=== PATIENT | female | born 1950 | race Caucasian/White ===

== ENCOUNTER 2021-03-03 13:46 | Emergency (ER) | payer SELFPAY ==
[~2021-03-03] VITALS: Ht 162.6 cm; Wt 64.9 kg
--- NOTE | 2021-03-03 13:54 | NUR ---
LOW ABDOMINAL PAIN X 1 MONTH. BREATHING IS EVEN AND UNLABORED. AWAITING MD BAILON IN BED 4
[2021-03-03 14:36] LABS: BASOPHILS % (AUTO) 0.5 % (0.0-2.0); EOSINOPHILS % (AUTO) 0.9 % (0.0-6.0); HEMATOCRIT 32 % (33-45); HEMOGLOBIN 11.4 g/dL (11.5-14.8); LYMPHOCYTES # (AUTO) 1.3 K/uL (0.8-4.8); LYMPHOCYTES % (AUTO) 21.4 % (20.0-44.0); MEAN CORPUSCULAR HGB CONC 35 g/dl (31.0-36.0); MEAN CORPUSCULAR VOLUME 94 fL (82-100); MONOCYTES # (AUTO) 0.4 K/uL (0.1-1.30); MONOCYTES % (AUTO) 7.4 % (2.0-12.0); NEUTROPHILS # (AUTO) 4.2 K/uL (1.8-8.9); NEUTROPHILS % (AUTO) 69.8 % (43.0-81.0); PLATELET COUNT (AUTO) 285 K/uL (150-450); RED BLOOD CELL COUNT(AUTO) 3.44 MIL/uL (4.0-5.2)
--- NOTE | 2021-03-03 15:36 | NUR ---
PT TAKEN TO CT
[2021-03-03] MEDS ORDERED: [UNRECOGNIZED DRUG - REMARK] (16:06)
[2021-03-03] MEDS ORDERED: [UNRECOGNIZED DRUG - OTHER] PO (16:06)
--- NOTE | 2021-03-03 16:27 | NUR ---
COVID TEST COLLECTED AND SENT TO LAB
--- NOTE | 2021-03-03 17:49 | NUR ---
PT LEFT AMA AND UNDERSTOOD THE RISKS OF LEAVING.
[2021-03-03 18:02] LABS: BILIRUBIN,TOTAL 0.5 mg/dL (0.2-1.0); CALCIUM, SERUM 9.9 mg/dL (8.5-10.1)
[2021-03-03 18:03] LABS: ALBUMIN 4.2 g/dL (3.4-5.0); BILIRUBIN,DIRECT 0.1 mg/dL (0.0-0.2); TOTAL PROTEIN, SERUM 7.9 g/dL (6.4-8.2)
[2021-03-03 18:04] LABS: POTASSIUM 7.3 mmol/L (3.5-5.1)
[2021-03-03 18:05] LABS: CREATININE 17.8 mg/dL (0.6-1.3)
[2021-03-03 18:50] LABS: BILIRUBIN,URINE NEGATIVE (NEGATIVE); COLOR,URINE YELLOW (YELLOW); LEUKOCYTE ESTERASE ,URINE NEGATIVE (NEGATIVE); NITRITE, URINE NEGATIVE (NEGATIVE); PROTEIN,URINE NEGATIVE (NEGATIVE); UGLUCOSE 100 MG/DL mg/dL (NEGATIVE); UROBILINOGEN,URINE 0.2 EU/dL (0.2)
[2021-03-03 19:09] VITALS: BP 188/89
== END 2021-03-03 19:10 | disposition left against medical advice (07) ==
LOC: ER 13:51
DX: R10.33 Periumbilical pain (principal); E87.5 Hyperkalemia; N17.9 Acute kidney failure, unspecified; Z20.822 Contact with and (suspected) exposure to COVID-19; I10 Essential (primary) hypertension; E11.9 Type 2 diabetes mellitus without complications; Z98.890 Other specified postprocedural states
CPT/HCPCS: 36415; 80048-TC; 80076-TC; 83690-TC; 85025-TC; C9803

== ENCOUNTER 2021-03-06 14:54 | Inpatient (IN) | payer MEDICAID ==
[~2021-03-06] VITALS: Ht 160 cm; Wt 68.0 kg
[2021-03-06] VITALS: BP 171/101
[~2021-03-06 14:54] MED LIST: [UNRECOGNIZED DRUG - OTHER] PO; [UNRECOGNIZED DRUG - REMARK]
--- NOTE | 2021-03-06 14:54 | NUR ---
PT BIB DAUGHTER C/O GENERALIZED WEAKNESS, HIGH B/P. NAUSEA NOT TOLERATING FODD. PT IS AAOX4, NOT IN RESPIRATORY DISTRESS, HOOKED TO CHEMISTRY ASSOCIATE, KEPT RESTED AND COMFORTABLE. WILL CONTINUE TO MONITOR.
--- NOTE | 2021-03-06 15:08 | NUR ---
SEEN AND EXMAINED BY .
[2021-03-06] MEDS ORDERED: IV NS 0.9% 1,000 ML BAG IV ONE (15:30)
[2021-03-06] MEDS ORDERED: ONDANSETRON HCL/PF 4 MG/2 ML VIAL IVP ONE (15:30)
--- NOTE | 2021-03-06 15:30 | NUR ---
IV LINE ESTABLISHED BLOOD DRAWN AND SENT TO LAB.
[2021-03-06] MEDS ORDERED: ONDANSETRON HCL/PF 4 MG/2 ML VIAL ONE (15:36)
[2021-03-06] MEDS ORDERED: LISI1TAB55 PO (15:45)
[2021-03-06] MEDS ORDERED: LETROZOLE PO (15:45)
[2021-03-06 15:54] LABS: BASOPHILS % (AUTO) 0.5 % (0.0-2.0); EOSINOPHILS % (AUTO) 0.9 % (0.0-6.0); HEMATOCRIT 32 % (33-45); LYMPHOCYTES # (AUTO) 0.9 K/uL (0.8-4.8); LYMPHOCYTES % (AUTO) 16.5 % (20.0-44.0); MEAN CORPUSCULAR HGB CONC 35 g/dl (31.0-36.0); MEAN CORPUSCULAR VOLUME 93 fL (82-100); MONOCYTES # (AUTO) 0.4 K/uL (0.1-1.30); MONOCYTES % (AUTO) 6.9 % (2.0-12.0); NEUTROPHILS # (AUTO) 4.2 K/uL (1.8-8.9); NEUTROPHILS % (AUTO) 75.2 % (43.0-81.0); PLATELET COUNT (AUTO) 262 K/uL (150-450); RED BLOOD CELL COUNT(AUTO) 3.39 MIL/uL (4.0-5.2); WHITE BLOOD COUNT (AUTO) 5.6 K/uL (4.3-11.0)
[2021-03-06 15:58] LABS: BILIRUBIN,URINE NEGATIVE (NEGATIVE); COLOR,URINE YELLOW (YELLOW); LEUKOCYTE ESTERASE ,URINE NEGATIVE (NEGATIVE); NITRITE, URINE NEGATIVE (NEGATIVE); PROTEIN,URINE NEGATIVE (NEGATIVE); UGLUCOSE 250 MG/DL mg/dL (NEGATIVE); UROBILINOGEN,URINE 0.2 EU/dL (0.2)
[2021-03-06 16:06] LABS: CALCIUM, SERUM 9.2 mg/dL (8.5-10.1); CARBON DIOXIDE 17 mmol/L (21-32); CHLORIDE 95 mmol/L (98-107); GLUCOSE 185 mg/dL (74-106); SODIUM SERUM 130 mmol/L (136-145)
[2021-03-06 16:11] LABS: CREATININE 19.6 mg/dL (0.6-1.3); POTASSIUM 6.5 mmol/L (3.5-5.1); UREA NITROGEN, BLOOD 128 mg/dL (7-18)
--- NOTE | 2021-03-06 16:13 | NUR ---
DR PINTO AT BEDSIDE
--- NOTE | 2021-03-06 16:15 | NUR ---
CALLED NURSING SUP FOR BED, NO ANSWER. WILL CALL BACK IN 10 MINUTES.
[2021-03-06 16:17] LABS: BILIRUBIN,DIRECT 0.2 mg/dL (0.0-0.2); BILIRUBIN,TOTAL 0.4 mg/dL (0.2-1.0)
[2021-03-06 16:18] LABS: ALANINE AMINOTRANSFERASE 15 U/L (12-78); ALBUMIN 4.3 g/dL (3.4-5.0); ALKALINE PHOSPHATASE 61 U/L (46-116); ASPARTATE AMINOTRANSFERASE 13 U/L (15-37); LIPASE 233 U/L (73-393); TOTAL PROTEIN, SERUM 7.9 g/dL (6.4-8.2)
--- NOTE | 2021-03-06 16:23 | NUR ---
CALLED NURSING SUP FOR TELE BED.
[2021-03-06] MEDS ORDERED: CALCIUM CHLORIDE 1,000 MG/10 ML DISP.SYRIN ONE (16:27)
[2021-03-06] MEDS ORDERED: SODIUM BICARBONATE SYR 50 MEQ/50 ML DISP.SYRIN ONE ×2 (16:27→16:58)
[2021-03-06] MEDS ORDERED: CALCIUM CHLORIDE 1,000 MG/10 ML DISP.SYRIN IV ONE (16:30)
[2021-03-06] MEDS ORDERED: SODIUM BICARBONATE SYR 50 MEQ/50 ML DISP.SYRIN IV ONE ×2 (16:30)
[2021-03-06] MEDS ORDERED: DEXTROSE 50%-WATER 50 ML DISP.SYRIN IV PRN (16:30)
[2021-03-06] MEDS: HEPARIN SODIUM, PORCINE 5000 UNITS/1 ML VIAL SQ SCH ×2 (16:30→22:57)
[2021-03-06] MEDS ORDERED: ALBUTEROL FS 2.5 MG/3 ML VIAL.NEB NEB ONE (16:30)
[2021-03-06] MEDS ORDERED: MORPHINE SULFATE INJ 2 MG/ML DISP.SYRIN IV PRN (16:30)
[2021-03-06] MEDS ORDERED: ACETAMINOPHEN 325 MG TABLET PO PRN (16:30)
[2021-03-06] MEDS ORDERED: ALBUTEROL FS 2.5 MG/3 ML VIAL.NEB ONE (16:46)
--- NOTE | 2021-03-06 16:46 | NUR ---
PER DR BALLARD NEXT TROPONIN CHECK TO BE DONE AT 2230. LAB MADE AWARE.
--- NOTE | 2021-03-06 16:53 | NUR ---
PER DR BALLARD TO GIVE SECOND DOSE OF SODIUM BICARB.
--- NOTE | 2021-03-06 17:04 | NUR ---
US TECH AT THE BEDSIDE
[2021-03-06 17:17] LABS: CREATININE, URINE 41.2 MG/DL (30.0-125.0); URINE SODIUM, RANDOM 59 mmol/l (40-220)
[2021-03-06] MEDS: BLOOD SUGAR DIAGNOSTIC 1 EACH STRIP VI SCH ×2 (17:40→22:58)
--- NOTE | 2021-03-06 17:40 | NUR ---
BLOOD SUGAR READING IS 103. NO COVERAGE GIVEN PER SLIDING SCALE ORDER.
--- NOTE | 2021-03-06 17:41 | NUR ---
HEPARIN HELP PER DR BALLARD.
--- NOTE | 2021-03-06 18:31 | NUR ---
NOTIFIED LEO IN ER THAT US GUIDED THORACENTESIS WILL BE DONE TOMORROW PER JEOPARDY IR DR. OLIVARES @ [id number]
[2021-03-06] MEDS ORDERED: LABETALOL HCL IV 100MG VIAL ONE (19:18)
[2021-03-06] MEDS: LABETALOL 20 MG/4 ML VIAL IV PRN ×2 (19:22→23:45)
--- NOTE | 2021-03-06 19:23 | NUR ---
REPORT GIVEN TO NURSE TA FOR PATRICIA
--- NOTE | 2021-03-06 19:44 | NUR ---
PT AWAKE AND ALERT ON NETWORK INTERN AND PULSE OX. CALL LIGHT WITHIN REACH AND ALL NEEDS MET.
--- NOTE | 2021-03-06 20:02 | NUR ---
REPORT GIVEN TO CHRISTIAN
--- NOTE | 2021-03-06 20:18 | NUR ---
PT TRANSPORTED TO ROOM 324-2 ON CARDFIAC MONITOR PER ACLS PROTOCOL. V/S STABLE AT TIME OF TRANSFER. ALL BELONGINGS AND PT CHART TRANSFERRED TO .
--- NOTE | 2021-03-06 20:30 | NUR ---
CONCRETE SPREADER NOTES PATIENT ARRIVED ON UNIT VIA GURNEY BY ER NURSE. PATIENT LAYING AWAKE IN BED. A/O X4. PATIENT WITH REGULAR AND UNLABORED BREATHING, ON ROOM AIR TOLERATED WELL. NO SIGNS AND SYMPTOMS OF DISCOMFORT AT THIS TIME. NO COMPLAINS OF PAIN OR DISCOMFORT AT THIS TIME. IV ACCESS L HAND G #20 SL. IV ACCESS PATENT AND INTACT. SAFETY PRECAUTIONS ENFORCED WITH BED LOCKED AND AT LOWEST POSITION. SIDERAILS UP X2. CALL LIGHT WITHIN REACH AT ALL TIMES. WILL CONTINUE TO MONITOR PATIENT.
[2021-03-06 20:46] LABS: ALBUMIN 3.7 g/dL (3.4-5.0); BILIRUBIN,TOTAL 0.4 mg/dL (0.2-1.0); CALCIUM, SERUM 9.4 mg/dL (8.5-10.1); POTASSIUM 6.1 mmol/L (3.5-5.1)
[2021-03-06 20:51] LABS: CREATININE 19.1 mg/dL (0.6-1.3)
--- NOTE | 2021-03-06 23:00 | NUR ---
ANDROID ARCHITECT NOTES GAVE REPORT TO JEANNIE FOR CONTINUITY OF CARE
--- NOTE | 2021-03-06 23:01 | NUR ---
RN NOTE RECEIVED PATIENT IN BED RESTING ALERT ORIENTED X4 ON ROOM AIR ERITREAN SPEAKING,IV SITE IS ON LEFT HAND INTACT PATENT AMBULATORY CONTINET BOWEL/BLADDER,PATIENT ADMITTED WITH HIGH BLOOD PRESSURE ABOUT 191/104 SAFETY MEASURE IMPLEMENT BED IN LOW POSITON AND LOCKED,CALL LIGHT WITHIN REACH, CONTINUE TO MONITOR.
[2021-03-06 23:31] VITALS: BP 183/99
[2021-03-07] VITALS (9 sets, daily range): BP systolic 93–189; BP diastolic 56–97
--- NOTE | 2021-03-07 06:44 | NUR ---
RN NOTE PATIENT REMAINS ON ALERT ORIENTED X4 NO SOB NOT ACUTE DISTRESS NOTED,ON ROOM AIR,BLOOD PRESSURE IS 150/78,ALL DUE MEDS GIVEN MD ORDERED,KEPT CALL LIGHT WITHIN REACH ALL NEEDS MET ENDORSE NEXT COMING SHIFT FOR CONTINUATION OF CARE.
--- NOTE | 2021-03-07 07:21 | NUR ---
SUPERVISOR OF COMMUNICATIONS NOTE RECEIVED PATIENT IN BED RESTING, PATIENT IS ALERT ORIENTED X 4 ON ROOM AIR. PATIENT WITH IV ACCESS ON THE LEFT HAND G, 20, PATENT AND INTACT. PATIENT IS AMBULATORY AND CONTINENT OF BOWEL/BLADDER. SAFETY MEASURE ENFORCED WITH BED IN LOW POSITION AND LOCKED, CALL LIGHT WITHIN REACH, SIDE RAILS RAISED. WILL CONTINUE TO MONITOR.
[2021-03-07 08:02] LABS: BASOPHILS % (AUTO) 0.8 % (0.0-2.0); EOSINOPHILS % (AUTO) 2.6 % (0.0-6.0); HEMATOCRIT 29 % (33-45); LYMPHOCYTES % (AUTO) 21.6 % (20.0-44.0); MEAN CORPUSCULAR HGB CONC 35 g/dl (31.0-36.0); MEAN CORPUSCULAR VOLUME 93 fL (82-100); MONOCYTES # (AUTO) 0.5 K/uL (0.1-1.30); PLATELET COUNT (AUTO) 234 K/uL (150-450); RED BLOOD CELL COUNT(AUTO) 3.07 MIL/uL (4.0-5.2); WHITE BLOOD COUNT (AUTO) 4.7 K/uL (4.3-11.0)
[2021-03-07 08:20] LABS: ALBUMIN 3.6 g/dL (3.4-5.0); BILIRUBIN,TOTAL 0.4 mg/dL (0.2-1.0); CALCIUM, SERUM 9.5 mg/dL (8.5-10.1); MAGNESIUM 3.4 mg/dL (1.8-2.4); TOTAL PROTEIN, SERUM 6.6 g/dL (6.4-8.2)
[2021-03-07 08:29] LABS: CREATININE 19.2 mg/dL (0.6-1.3); PHOSPHORUS 8.6 mg/dL (2.5-4.9); POTASSIUM 6.3 mmol/L (3.5-5.1)
[2021-03-07] MEDS ORDERED: LISINOPRIL (20MG) 20 MG TABLET PO SCH (09:00)
[2021-03-07] MEDS ORDERED: INSULIN REGULAR, HUMAN 100 UNIT/ML 10 ML VIAL IV ONE (09:00)
[2021-03-07] MEDS ORDERED: DEXTROSE 50%-WATER 50 ML DISP.SYRIN IVP ONE (09:00)
[2021-03-07] MEDS ORDERED: SODIUM BICARBONATE SYR 50 MEQ/50 ML DISP.SYRIN IV ONE (09:00)
[2021-03-07] MEDS ORDERED: HYDROCHLOROTHIAZIDE 25 MG TABLET PO SCH (09:00)
--- NOTE | 2021-03-07 09:00 | NUR ---
TEAM SPORTS SALES ASSOCIATE NOTE PATIENT WITH ABNORMAL LAB RESULTS. PATIENT SEEN BY DR. JASSO AND DR. DENSON. WITH ORDERS MADE AND CARRIED OUT. WILL CONTINUE TO MONITOR PATIENT.
[2021-03-07] MEDS: BLOOD SUGAR DIAGNOSTIC 1 EACH STRIP VI SCH ×4 (09:06→22:09)
[2021-03-07] MEDS: LETROZOLE 2.5 MG TABLET PO SCH (09:15)
[2021-03-07] MEDS: HEPARIN SODIUM, PORCINE 5000 UNITS/1 ML VIAL SQ SCH ×2 (09:18→21:00)
[2021-03-07] MEDS ORDERED: SODIUM POLYSTYRENE SULFONATE 15 G/60 ML BOTTLE PO ONE (09:30)
[2021-03-07] MEDS: AMLODIPINE BESYLATE 10 MG TABLET PO SCH (11:15)
[2021-03-07] MEDS: hydrALAZINE HCL 25 MG TABLET PO SCH ×3 (11:16→21:55)
--- NOTE | 2021-03-07 12:26 | NUR ---
PT ON BLOOD THINNER HEPARIN SQ, LAST GIVEN 9 AM 03/07/21. RNITZ WAS INFORMED TO HOLD HEPARIN. CONSENT PENDING. THORACENTESIS CAN BE DONE TOMORROW .
[2021-03-07 13:35] LABS: THYROID STIMULATING HORMONE 1.671 uIU/mL (0.358-3.74)
[2021-03-07 14:27] LABS: ALBUMIN 4.5 g/dL (3.4-5.0); BILIRUBIN,TOTAL 0.5 mg/dL (0.2-1.0); MAGNESIUM 3.5 mg/dL (1.8-2.4); POTASSIUM 5.4 mmol/L (3.5-5.1); TOTAL PROTEIN, SERUM 8.4 g/dL (6.4-8.2)
[2021-03-07 14:48] LABS: CREATININE 18.2 mg/dL (0.6-1.3); PHOSPHORUS 8.2 mg/dL (2.5-4.9)
[2021-03-07] MEDS ORDERED: IV NS 0.9% 1,000 ML IV ONE (15:30)
--- NOTE | 2021-03-07 19:00 | NUR ---
GLASS CURVATURE GAUGER NOTE PATIENT IN BED RESTING, PATIENT IS ALERT ORIENTED X 4 ON ROOM AIR. PATIENT WITH IV ACCESS ON THE LEFT HAND G, 20, PATENT AND INTACT. PATIENT IS AMBULATORY AND CONTINENT OF BOWEL/BLADDER. SAFETY MEASURE ENFORCED WITH BED IN LOW POSITION AND LOCKED, CALL LIGHT WITHIN REACH, SIDE RAILS RAISED. WILL ENDORSE TO NEXT SHIFT FOR CONTINUITY OF CARE
--- NOTE | 2021-03-07 19:28 | NUR ---
COUNTY TAX ASSESSOR NOTE RECEIVED PATIENT IN BED RESTING, PATIENT IS ALERT ORIENTED X 4 ON ROOM AIR. PATIENT WITH IV ACCESS ON THE LEFT HAND G, 20, PATENT AND INTACT. PATIENT IS AMBULATORY AND CONTINENT OF BOWEL/BLADDER. PT DAUGHTER AT BEDSIDE AT THIS TIME.SAFETY MEASURE ENFORCED WITH BED IN LOW POSITION AND LOCKED, CALL LIGHT WITHIN REACH, SIDE RAILS RAISED. WILL CONTINUE TO MONITOR.
[2021-03-07] MEDS: LABETALOL 20 MG/4 ML VIAL IV PRN (20:06)
--- NOTE | 2021-03-07 20:11 | NUR ---
REGISTRATION REP NOTES PRN LABETALOL GIVEN FOR SBP OF 189/95 PT TOLERATED WELL. WILL REASSESS BLOOD PRESSURE. PT HAD MIDLINE INSERTED ALSO LEFT UPPER ARM TOLERATED WELL.
[2021-03-07 20:30] LABS: ALBUMIN 3.5 g/dL (3.4-5.0); BILIRUBIN,TOTAL 0.3 mg/dL (0.2-1.0); CALCIUM, SERUM 8.1 mg/dL (8.5-10.1); POTASSIUM 5.3 mmol/L (3.5-5.1); TOTAL PROTEIN, SERUM 6.5 g/dL (6.4-8.2)
[2021-03-07 20:31] LABS: CREATININE 16.1 mg/dL (0.6-1.3)
--- NOTE | 2021-03-07 21:58 | NUR ---
MAJOR LEAGUE BASEBALL PLAYER NOTES PT HEPARIN HELD PT TO HAVE THORACENTESIS TOMORROW CALLED RADIOLOGY UNSURE IF IT WILL BE IN THE MORNING OR EVENING. WILL OCNTINUE TO MONITOR PT
[2021-03-07] MEDS: *INSULIN REGULAR(HUMULIN R)HUM 100 UNIT/ML VIAL SQ PRN (22:17)
[2021-03-08] VITALS (11 sets, daily range): BP systolic 140–179; BP diastolic 78–101
[2021-03-08] MEDS: LABETALOL 20 MG/4 ML VIAL IV PRN (01:08)
--- NOTE | 2021-03-08 01:15 | NUR ---
MOTOR POOL CLERK NOTES PRN LABETALOL GIVE OR SBP GREATER THAN 160 PT TOLERATED WELL WILL CONTINUE TO MONITOR.
[2021-03-08 03:42] LABS: BASOPHILS % (AUTO) 0.6 % (0.0-2.0); EOSINOPHILS % (AUTO) 3.3 % (0.0-6.0); HEMATOCRIT 28 % (33-45); LYMPHOCYTES # (AUTO) 1.2 K/uL (0.8-4.8); LYMPHOCYTES % (AUTO) 18.2 % (20.0-44.0); MEAN CORPUSCULAR HGB CONC 35 g/dl (31.0-36.0); MEAN CORPUSCULAR VOLUME 93 fL (82-100); MONOCYTES # (AUTO) 0.6 K/uL (0.1-1.30); MONOCYTES % (AUTO) 8.6 % (2.0-12.0); NEUTROPHILS # (AUTO) 4.8 K/uL (1.8-8.9); NEUTROPHILS % (AUTO) 69.3 % (43.0-81.0); PLATELET COUNT (AUTO) 231 K/uL (150-450); RED BLOOD CELL COUNT(AUTO) 3.05 MIL/uL (4.0-5.2); WHITE BLOOD COUNT (AUTO) 6.9 K/uL (4.3-11.0)
[2021-03-08 03:54] LABS: ALBUMIN 3.5 g/dL (3.4-5.0); BILIRUBIN,TOTAL 0.3 mg/dL (0.2-1.0); CALCIUM, SERUM 8.5 mg/dL (8.5-10.1); POTASSIUM 5.6 mmol/L (3.5-5.1); TOTAL PROTEIN, SERUM 6.5 g/dL (6.4-8.2)
[2021-03-08] MEDS: hydrALAZINE HCL 25 MG TABLET PO SCH ×3 (05:25→22:17)
[2021-03-08 05:26] LABS: OCCULT BLOOD STOOL NEGATIVE (NEGATIVE)
--- NOTE | 2021-03-08 06:29 | NUR ---
HUMAN RESOURCES TALENT MANAGER NOTE PATIENT IN BED RESTING, PATIENT IS ALERT ORIENTED X 4 ON ROOM AIR. PATIENT WITH IV ACCESS ON LEFT UPPER ARM MIDLINE FLUSHED INTACT. PATIENT IS AMBULATORY AND CONTINENT OF BOWEL WITH A LANG CATHETER IN PLACE DRAINING YELLOW URINE.. PT DAUGHTER AT BEDSIDE AT THIS TIME.SAFETY MEASURE ENFORCED WITH BED IN LOW POSITION AND LOCKED, CALL LIGHT WITHIN REACH, SIDE RAILS RAISED. WILL ENDORSE CARE TO DAY SHIFT NURSE.
[2021-03-08] MEDS: BLOOD SUGAR DIAGNOSTIC 1 EACH STRIP VI SCH ×4 (07:54→22:17)
--- NOTE | 2021-03-08 07:55 | NUR ---
SINGLE NEEDLE TUFTING MACHINE OPERATOR OPENING NOTES RECEIVED PATIENT IN BED, AWAKE, A/O X4. PATIENT ON ROOM AIR; BREATHING EVEN AND UNLABORED; NO SOB NOTED. NO COMPLAINS OF PAIN. TELE MONITOR WITH A CURRENT READING OF NSR [address] IN [address] DRAINING YELLOW URINE. HAYDEN MIDLINE IN PLACE AND INTACT. SAFETY PRECAUTIONS IN PLACE; BED IN LOW POSITION AND LOCKED, RAILS UP X2, CALL LIGHT WITHIN REACH. WILL CONTINUE TO MONITOR PATIENT.
[2021-03-08] MEDS: LETROZOLE 2.5 MG TABLET PO SCH (08:22)
[2021-03-08] MEDS: AMLODIPINE BESYLATE 10 MG TABLET PO SCH (08:23)
[2021-03-08] MEDS: HEPARIN SODIUM, PORCINE 5000 UNITS/1 ML VIAL SQ SCH ×2 (08:24→21:00)
[2021-03-08] MEDS: CARVEDILOL 12.5 MG TABLET PO SCH ×3 (09:00→16:49)
--- NOTE | 2021-03-08 09:15 | NUR ---
PER RN SRIRAM HEPARIN WAS GIVEN AT 9 AM TODAY. PER RN THERE WERE NO NOTES TO HOLD HEPARIN FOR THORACENTESIS. SHE SAID SHE WILL PUT NOTES TO HOLD HEPARIN FOR THORACENTESIS BE DONE TOMORROW
[2021-03-08 11:06] LABS: IMMUNOGLOBULIN A, SERUM 171 mg/dL (87-352); IMMUNOGLOBULIN G, SERUM 837 mg/dL (586-1602); IMMUNOGLOBULIN M, SERUM 61 mg/dL (26-217)
--- NOTE | 2021-03-08 12:35 | NUR ---
SONG WRITER NOTES PATIENT LEFT FOR BONE SCAN
--- NOTE | 2021-03-08 13:49 | NUR ---
NM: WBB SCAN WAS COMPLETED. TECH:RB
[2021-03-08 14:11] LABS: ALBUMIN 3.7 g/dL (3.4-5.0); BILIRUBIN,TOTAL 0.4 mg/dL (0.2-1.0); CALCIUM, SERUM 9.1 mg/dL (8.5-10.1); TOTAL PROTEIN, SERUM 7.1 g/dL (6.4-8.2)
[2021-03-08 14:24] LABS: CREATININE 17.9 mg/dL (0.6-1.3); POTASSIUM 6.2 mmol/L (3.5-5.1)
--- NOTE | 2021-03-08 14:45 | NUR ---
MED SPECIALIST NOTES LAB CALLED WITH A CRITICAL VALUE OF POTASSIUM OF 6.2 MD NOTIFIED
[2021-03-08] MEDS: INSULIN REGULAR, HUMAN 100 UNIT/ML 3 ML VIAL SQ PRN (17:51)
--- NOTE | 2021-03-08 18:40 | NUR ---
ENGRAVER PANTOGRAPH CLOSING NOTES PATIENT REMAINS IN BED, AWAKE, A/O X4. PATIENT ON ROOM AIR; BREATHING EVEN AND UNLABORED; NO SOB NOTED DURING SHIFT. NO COMPLAINS OF PAIN. TELE MONITOR WITH A CURRENT READING OF NSR [address] IN [address] DRAINING YELLOW URINE WITH A DAILY OUTPUT OF 900 MLS. HAYDEN MIDLINE IN PLACE AND INTACT. ALL NEEDS ATTENDED DURING THE DAY. SAFETY PRECAUTIONS IN PLACE; BED IN LOW POSITION AND LOCKED, RAILS UP X2, CALL LIGHT WITHIN REACH. WILL ENDORSE TO CLERK TELEGRAPH SERVICE NURSE FOR PATRICIA.
[2021-03-08] MEDS ORDERED: SODIUM POLYSTYRENE SULFONATE 15 G/60 ML BOTTLE PO ONE (19:30)
[2021-03-08] MEDS ORDERED: SODIUM BICARBONATE SYR 50 MEQ/50 ML DISP.SYRIN IV ONE (19:30)
--- NOTE | 2021-03-08 19:30 | NUR ---
PAN RECLAIM PROCESSOR OPENING NOTES PATIENT REMAINS IN BED, AWAKE, A/O X4. PATIENT ON ROOM AIR; BREATHING EVEN AND UNLABORED; NO SOB NOTED .NO COMPLAINS OF PAIN. TELE MONITOR WITH A CURRENT READING OF NSR [address]ATH IN PL[address] DRAINING YELLOW URINE. HAYDEN MIDLINE IN PLACE AND INTACT. ALL NEEDS ATTENDED DURING THE NIGHT. SAFETY PRECAUTIONS IN PLACE; BED IN LOW POSITION AND LOCKED, RAILS UP X2, CALL LIGHT WITHIN REACH. WILL CONTINUE TO MONITOR.
[2021-03-08 20:49] LABS: ALBUMIN 3.4 g/dL (3.4-5.0); BILIRUBIN,TOTAL 0.4 mg/dL (0.2-1.0); CALCIUM, SERUM 8.5 mg/dL (8.5-10.1); POTASSIUM 5.4 mmol/L (3.5-5.1); TOTAL PROTEIN, SERUM 6.6 g/dL (6.4-8.2)
[2021-03-08 20:53] LABS: CREATININE 17.8 mg/dL (0.6-1.3)
[2021-03-08] MEDS: *INSULIN REGULAR(HUMULIN R)HUM 100 UNIT/ML VIAL SQ PRN (22:23)
[2021-03-09] VITALS (9 sets, daily range): BP systolic 107–158; BP diastolic 60–87
[2021-03-09] MEDS: hydrALAZINE HCL 25 MG TABLET PO SCH ×3 (04:37→20:56)
--- NOTE | 2021-03-09 07:00 | NUR ---
MAINTENANCE GROUNDSKEEPER CLOSING NOTES PATIENT REMAINS IN BED, AWAKE, A/O X4. PATIENT ON ROOM AIR; BREATHING EVEN AND UNLABORED; NO SOB NOTED DURING SHIFT. NO COMPLAINS OF PAIN. TELE MONITOR WITH A CURRENT READING OF NSR [address] CATH IN PLACE DRAINING YELLOW URINE WITH A DAILY OUTPUT OF 300 MLS. HAYDEN MIDLINE IN PLACE AND INTACT. ALL NEEDS ATTENDED DURING THE DAY. SAFETY PRECAUTIONS IN PLACE; BED IN LOW POSITION AND LOCKED, RAILS UP X2, CALL LIGHT WITHIN REACH. WILL ENDORSE CARE TO DAY SHIFT NURSE.
[2021-03-09 07:18] LABS: BASOPHILS % (AUTO) 0.6 % (0.0-2.0); EOSINOPHILS % (AUTO) 3.8 % (0.0-6.0); HEMATOCRIT 28 % (33-45); HEMOGLOBIN 9.9 g/dL (11.5-14.8); LYMPHOCYTES # (AUTO) 1.1 K/uL (0.8-4.8); LYMPHOCYTES % (AUTO) 16.2 % (20.0-44.0); MEAN CORPUSCULAR HGB CONC 35 g/dl (31.0-36.0); MEAN CORPUSCULAR VOLUME 92 fL (82-100); MONOCYTES # (AUTO) 0.5 K/uL (0.1-1.30); MONOCYTES % (AUTO) 7.9 % (2.0-12.0); NEUTROPHILS # (AUTO) 4.7 K/uL (1.8-8.9); NEUTROPHILS % (AUTO) 71.5 % (43.0-81.0); PLATELET COUNT (AUTO) 244 K/uL (150-450); RED BLOOD CELL COUNT(AUTO) 3.04 MIL/uL (4.0-5.2); WHITE BLOOD COUNT (AUTO) 6.5 K/uL (4.3-11.0)
--- NOTE | 2021-03-09 07:53 | NUR ---
ARTILLERY OFFICER OPENING NOTES Pt REMAINS IN BED, AWAKE, A/O X4. PATIENT ON ROOM AIR; BREATHING IS EVEN AND UNLABORED AND TOLERATING WELL. NO SOB NOTED. NO COMPLAINTS OF PAIN. LANG CATH IN PLACE DRAINING YELLOW URINE. Pt HAS IV ACCESS ON L UA MIDLINE IN PLACE AND INTACT. SAFETY PRECAUTIONS IN PLACE; BED IS LOCKED AND IN LOWEST POSITION, SIDE RAILS UP X2, CALL LIGHT IS WITHIN REACH. WILL CONTINUE TO MONITOR.
[2021-03-09 08:06] LABS: ALBUMIN 3.4 g/dL (3.4-5.0); BILIRUBIN,TOTAL 0.4 mg/dL (0.2-1.0); CALCIUM, SERUM 8.6 mg/dL (8.5-10.1); POTASSIUM 4.8 mmol/L (3.5-5.1); TOTAL PROTEIN, SERUM 6.2 g/dL (6.4-8.2)
[2021-03-09] MEDS: BLOOD SUGAR DIAGNOSTIC 1 EACH STRIP VI SCH ×4 (08:15→21:43)
[2021-03-09] MEDS: HEPARIN SODIUM, PORCINE 5000 UNITS/1 ML VIAL SQ SCH ×2 (09:00→20:58)
[2021-03-09 09:07] LABS: CREATININE 18.5 mg/dL (0.6-1.3)
--- NOTE | 2021-03-09 09:18 | NUR ---
RN NOTES Pt HAS THORACENTESIS SCHEDULED THIS AM. HEPARIN NOT ADMIN
[2021-03-09] MEDS: LETROZOLE 2.5 MG TABLET PO SCH (09:22)
[2021-03-09] MEDS: CARVEDILOL 12.5 MG TABLET PO SCH ×3 (09:23→16:41)
[2021-03-09] MEDS: AMLODIPINE BESYLATE 10 MG TABLET PO SCH (09:23)
[2021-03-09 10:07] LABS: *SPE A/G RATIO 1.2 (0.7-1.7); *SPE ALPHA-1-GLOBULIN 0.3 g/dL (0.0-0.4); *SPE BETA GLOBULIN 1.3 g/dL (0.7-1.3); *SPE M-SPIKE Not Observed g/dL (Not Observed)
[2021-03-09] MEDS: INSULIN REGULAR, HUMAN 100 UNIT/ML 3 ML VIAL SQ PRN ×2 (13:50→17:42)
[2021-03-09] MEDS ORDERED: ANESTHESIA TRAY IN PYXIS 1 EA TRAY MC ONE (16:22)
--- NOTE | 2021-03-09 18:39 | NUR ---
RAYMOND MILL OPERATOR CLOSING NOTES Pt REMAINS IN BED, AWAKE, A/O X4. Pt's FAMILY IS AT BEDSIDE. PATIENT ON ROOM AIR, BREATHING IS EVEN AND UNLABORED; NO SOB AT THIS TIME NO COMPLAINTS OF PAIN AT THIS TIME. TELE MONITOR WITH A CURRENT READING OF NSR [address] CATH IN PLACE DRAINING YELLOW URINE WITH A DAILY OUTPUT OF 400 ml. L UA MIDLINE IN PLACE AND INTACT. ALL NEEDS ATTENDED DURING THE DAY. SAFETY PRECAUTIONS IN PLACE; BED IS LOCKED AND IN LOWEST POSITION. SIDE RAILS UPx3. CALL LIGHT AND BED SIDE TABLE ARE WITHIN REACH. WILL ENDORSE TO ONCOMING SHIFT.
[2021-03-10] VITALS: BP 112/56
[2021-03-10 04:00] VITALS: BP_SYST 131; BP_DIAS 63; BP_DIAS 73
[2021-03-10] MEDS: hydrALAZINE HCL 25 MG TABLET PO SCH ×5 (05:22→21:00)
[2021-03-10 05:54] LABS: BASOPHILS % (AUTO) 0.4 % (0.0-2.0); EOSINOPHILS % (AUTO) 3.3 % (0.0-6.0); HEMATOCRIT 30 % (33-45); HEMOGLOBIN 10.4 g/dL (11.5-14.8); LYMPHOCYTES # (AUTO) 1.3 K/uL (0.8-4.8); LYMPHOCYTES % (AUTO) 19.4 % (20.0-44.0); MEAN CORPUSCULAR HGB CONC 35 g/dl (31.0-36.0); MEAN CORPUSCULAR VOLUME 92 fL (82-100); MONOCYTES # (AUTO) 0.6 K/uL (0.1-1.30); MONOCYTES % (AUTO) 9.4 % (2.0-12.0); NEUTROPHILS # (AUTO) 4.4 K/uL (1.8-8.9); NEUTROPHILS % (AUTO) 67.5 % (43.0-81.0); PLATELET COUNT (AUTO) 281 K/uL (150-450); RED BLOOD CELL COUNT(AUTO) 3.24 MIL/uL (4.0-5.2); WHITE BLOOD COUNT (AUTO) 6.5 K/uL (4.3-11.0)
[2021-03-10 06:14] LABS: ALBUMIN 3.4 g/dL (3.4-5.0); BILIRUBIN,TOTAL 0.5 mg/dL (0.2-1.0); CALCIUM, SERUM 8.5 mg/dL (8.5-10.1); MAGNESIUM 2.8 mg/dL (1.8-2.4); POTASSIUM 4.6 mmol/L (3.5-5.1); TOTAL PROTEIN, SERUM 6.5 g/dL (6.4-8.2)
[2021-03-10 06:17] LABS: CREATININE 18.7 mg/dL (0.6-1.3)
[2021-03-10 06:20] LABS: PHOSPHORUS 8.3 mg/dL (2.5-4.9)
[2021-03-10] MEDS ORDERED: IOHEXOL 240MG/ML 0 ML IV ONE (06:29)
[2021-03-10] MEDS ORDERED: HEPARIN SODIUM, PORCINE 1,000 UNIT/ML VIAL ONE (06:29)
[2021-03-10] MEDS ORDERED: LIDOCAINE 1% INJ 50 ML MDV IJ ONE (06:30)
[2021-03-10] MEDS ORDERED: FENTANYL PF 100MCG/2ML AMPUL ONE (06:54)
[2021-03-10] MEDS ORDERED: PROPOFOL 20 ML IV ONE (06:55)
--- NOTE | 2021-03-10 07:05 | NUR ---
closing notes: alert and orientatedx4 cook islander spking daughter was here to visit NPO from midnight D/T permcath being placed at 7AM patient aware
[2021-03-10] MEDS: BLOOD SUGAR DIAGNOSTIC 1 EACH STRIP VI SCH ×4 (07:30→21:12)
--- NOTE | 2021-03-10 07:30 | NUR ---
RN NOTE Patient is in OR for procedure.
[2021-03-10 08:59] VITALS: BP 123/60
--- NOTE | 2021-03-10 09:00 | NUR ---
EMANATIONS ANALYSIS TECHNICIAN OPENING NOTE Patient brought back to Rm 323-2 via bed from OR. S/P placement of tunnelled dialysis catheter on RCW. A/O x 4, able to make needs known; mainly German speaking. On 2 LPM of O2, breathing evenly and unlabored. No SOB of s/s of distress noted. IV access on HAYDEN midline, intact and patent. Freedman catheter in place. Safety precautions in place: bed in low, locked position; siderails up x 2; call light within reach. Will continue to monitor.
[2021-03-10] MEDS: LETROZOLE 2.5 MG TABLET PO SCH (10:23)
[2021-03-10] MEDS: CARVEDILOL 12.5 MG TABLET PO SCH ×2 (10:24→17:00)
[2021-03-10] MEDS: AMLODIPINE BESYLATE 10 MG TABLET PO SCH (10:25)
[2021-03-10] MEDS: HEPARIN SODIUM, PORCINE 5000 UNITS/1 ML VIAL SQ SCH ×2 (10:26→21:10)
--- NOTE | 2021-03-10 12:00 | NUR ---
RN NOTE Patient's BS is 171, gave 3 units of Insulin per sliding scale.
[2021-03-10] MEDS: ONDANSETRON HCL/PF 4 MG/2 ML VIAL IVP PRN (12:21)
--- NOTE | 2021-03-10 12:21 | NUR ---
RN NOTE Patient had nausea and vomiting x 1, gave PRN Zofran. will continue to monitor patient.
[2021-03-10] MEDS: INSULIN REGULAR, HUMAN 100 UNIT/ML 3 ML VIAL SQ PRN ×2 (12:24→17:59)
--- NOTE | 2021-03-10 12:30 | NUR ---
RN NOTE Held Hydralazine due at 1230, patient is scheduled for HD this PM.
[2021-03-10 12:47] VITALS: BP 120/69
--- NOTE | 2021-03-10 13:00 | NUR ---
RN NOTE Per Dr. Conte's order, li catheter removed.
[2021-03-10] MEDS: ANCEF 1 GM/50 ML D5W IV SCH ×4 (15:06→22:53)
[2021-03-10 16:34] VITALS: BP 115/64
--- NOTE | 2021-03-10 17:17 | NUR ---
RN NOTE Held BP meds, patient on hemodialysis right now.
--- NOTE | 2021-03-10 17:30 | NUR ---
RN NOTE Patient's BS is 152, gave 2 units of Insulin per sliding scale.
--- NOTE | 2021-03-10 19:41 | NUR ---
FIBER ARTIST CLOSING NOTE Patient in bed, resting comfortably. A/O x 4, able to make needs known; mainly Bulgarian speaking. Stable on room air, breathing evenly and unlabored. No SOB of s/s of distress noted. IV access on HAYDEN midline, intact and patent. All needs attended to. Due meds given. Safety precautions maintained: bed in low, locked position; siderails up x 2; call light within reach. Will endorse to cnc machinist 2nd shift nurse for PATRICIA. Addendum: 03/10/21 at 1946 by JOSUÉ TSE RN ADD: On tele monitoring showing SR, HR on the 100's.
[2021-03-10 20:00] VITALS: BP 111/59
[2021-03-10] MEDS: *INSULIN REGULAR(HUMULIN R)HUM 100 UNIT/ML VIAL SQ PRN (21:24)
[2021-03-11] VITALS (7 sets, daily range): BP systolic 94–124; BP diastolic 49–64
[2021-03-11] MEDS: hydrALAZINE HCL 25 MG TABLET PO SCH ×3 (05:00→21:00)
--- NOTE | 2021-03-11 06:00 | NUR ---
RN NOTES blood sugar-159- No coverage given pt is NPO
[2021-03-11 06:27] LABS: BASOPHILS % (AUTO) 0.5 % (0.0-2.0); EOSINOPHILS % (AUTO) 2.8 % (0.0-6.0); HEMATOCRIT 28 % (33-45); HEMOGLOBIN 9.7 g/dL (11.5-14.8); LYMPHOCYTES # (AUTO) 0.9 K/uL (0.8-4.8); LYMPHOCYTES % (AUTO) 18.6 % (20.0-44.0); MEAN CORPUSCULAR HGB CONC 35 g/dl (31.0-36.0); MEAN CORPUSCULAR VOLUME 93 fL (82-100); MONOCYTES # (AUTO) 0.5 K/uL (0.1-1.30); MONOCYTES % (AUTO) 10.8 % (2.0-12.0); NEUTROPHILS # (AUTO) 3.4 K/uL (1.8-8.9); NEUTROPHILS % (AUTO) 67.3 % (43.0-81.0); PLATELET COUNT (AUTO) 206 K/uL (150-450); RED BLOOD CELL COUNT(AUTO) 2.99 MIL/uL (4.0-5.2); WHITE BLOOD COUNT (AUTO) 5.1 K/uL (4.3-11.0)
--- NOTE | 2021-03-11 06:40 | NUR ---
RN NOTES awake, denies pain, no SOB, morning care rendered, call light within reach, siderailsupx2, pt. needs attended
[2021-03-11 07:06] LABS: ALBUMIN 3.3 g/dL (3.4-5.0); BILIRUBIN,TOTAL 0.3 mg/dL (0.2-1.0); CALCIUM, SERUM 8.6 mg/dL (8.5-10.1); MAGNESIUM 2.8 mg/dL (1.8-2.4); POTASSIUM 4.1 mmol/L (3.5-5.1); TOTAL PROTEIN, SERUM 6.3 g/dL (6.4-8.2)
[2021-03-11] MEDS: BLOOD SUGAR DIAGNOSTIC 1 EACH STRIP VI SCH ×4 (07:30→22:03)
--- NOTE | 2021-03-11 07:30 | NUR ---
ms rn received on bed, awake,alert,oriente dx4,not in any form of distress,respirations even and unlabored,no sob noted, lungs are clear,abdomen soft,positive bowel sounds. patient for ct chest today,npo at this time,
[2021-03-11] MEDS: LETROZOLE 2.5 MG TABLET PO SCH (09:00)
[2021-03-11] MEDS ORDERED: CT SWABBABLE VALVE TRANS SET 1 EA INFUS.SET MC ONE (09:53)
[2021-03-11] MEDS ORDERED: IV NS 0.9% 0 ML IV ONE (09:53)
[2021-03-11] MEDS ORDERED: IOHEXOL-300 100 ML VIAL IV ONE (09:53)
--- NOTE | 2021-03-11 10:00 | NUR ---
ESTEBAN RODRIGUEZ WHEN DIALYSIS SCHEDULE CONFIRMED, FLOUR WORKERESTEBAN IBRAHIM
[2021-03-11] MEDS: CARVEDILOL 12.5 MG TABLET PO SCH ×2 (10:25→17:00)
[2021-03-11] MEDS: AMLODIPINE BESYLATE 10 MG TABLET PO SCH (10:25)
[2021-03-11] MEDS: HEPARIN SODIUM, PORCINE 5000 UNITS/1 ML VIAL SQ SCH ×2 (10:27→21:00)
--- NOTE | 2021-03-11 11:00 | NUR ---
ms rn dr. kuhn called, patient for insertion of new hd cath tomorrow, ct chest cancelled for today.
--- NOTE | 2021-03-11 12:30 | NUR ---
ms rn blood sugar-237- patient refused coverage due to she already ate food from home.
--- NOTE | 2021-03-11 17:00 | NUR ---
ms rn patient will have hd, held b/p meds at this time, will endorse to night m shift.
--- NOTE | 2021-03-11 19:30 | NUR ---
ms rn hd done, was not able to hd due to catheter issue. refused coverage insulin forbs-214, patient said she will have hd soon.
--- NOTE | 2021-03-11 19:55 | NUR ---
ms rn pn bed, all needs attended.
--- NOTE | 2021-03-11 20:50 | NUR ---
RN NOTES SPOKE TO DR. ANTONIO AND INFORMED HIM THAT PATIENT WILL HAVE PROCEDURE TOMORROW , GOT AN ORDER TO HOLD HEPARIN 5000UNITS FOR TONIGHT, ORDER NOTED AND CARRIED OUT
[2021-03-11] MEDS: *INSULIN REGULAR(HUMULIN R)HUM 100 UNIT/ML VIAL SQ PRN (21:58)
[2021-03-12] VITALS: BP 102/59
[2021-03-12 00:37] VITALS: BP 102/59
[2021-03-12 04:38] VITALS: BP 121/50
[2021-03-12] MEDS: hydrALAZINE HCL 25 MG TABLET PO SCH ×3 (05:00→21:49)
--- NOTE | 2021-03-12 06:37 | NUR ---
RN NOTES AWAKE, DENIES PAIN, NO SOB, MORNING CARE RENDERED, CALL LIGHT WITHIN REACH, SIDERAILSUPX2, PT. NEEDS ATTENDED
[2021-03-12 06:50] LABS: BASOPHILS # (AUTO) 0.1 K/uL (0.0-0.2); BASOPHILS % (AUTO) 0.9 % (0.0-2.0); EOSINOPHILS % (AUTO) 6.2 % (0.0-6.0); HEMATOCRIT 26 % (33-45); HEMOGLOBIN 9.2 g/dL (11.5-14.8); LYMPHOCYTES # (AUTO) 1.3 K/uL (0.8-4.8); MEAN CORPUSCULAR HGB CONC 35 g/dl (31.0-36.0); MEAN CORPUSCULAR VOLUME 93 fL (82-100); MONOCYTES # (AUTO) 0.7 K/uL (0.1-1.30); MONOCYTES % (AUTO) 11.8 % (2.0-12.0); NEUTROPHILS # (AUTO) 3.6 K/uL (1.8-8.9); NEUTROPHILS % (AUTO) 60.1 % (43.0-81.0); PLATELET COUNT (AUTO) 194 K/uL (150-450)
--- NOTE | 2021-03-12 07:00 | NUR ---
RN NOTES PATIENT PICKED UP FOR VASCULAR SURGERY W/ DR. ROBERT VIA [facility], ACCOMPANIED BY 2 OR NURSES.
[2021-03-12] MEDS ORDERED: PROPOFOL 20 ML IV ONE (07:05)
[2021-03-12] MEDS ORDERED: MIDAZOLAM HCL 2 MG/2ML VIAL ONE (07:05)
[2021-03-12] MEDS: BLOOD SUGAR DIAGNOSTIC 1 EACH STRIP VI SCH ×4 (07:14→21:57)
[2021-03-12] MEDS ORDERED: FENTANYL PF 100MCG/2ML AMPUL ONE (07:20)
[2021-03-12 07:21] LABS: ALBUMIN 3.4 g/dL (3.4-5.0); BILIRUBIN,TOTAL 0.4 mg/dL (0.2-1.0); CREATININE 4.6 mg/dL (0.6-1.3); MAGNESIUM 2.7 mg/dL (1.8-2.4); PHOSPHORUS 4.4 mg/dL (2.5-4.9); POTASSIUM 4.2 mmol/L (3.5-5.1); TOTAL PROTEIN, SERUM 6.7 g/dL (6.4-8.2)
[2021-03-12] MEDS: AMLODIPINE BESYLATE 10 MG TABLET PO SCH (08:15)
[2021-03-12] MEDS: LETROZOLE 2.5 MG TABLET PO SCH (08:15)
[2021-03-12] MEDS: CARVEDILOL 12.5 MG TABLET PO SCH ×2 (08:15→16:13)
[2021-03-12] MEDS: HEPARIN SODIUM, PORCINE 5000 UNITS/1 ML VIAL SQ SCH ×2 (08:15→21:57)
--- NOTE | 2021-03-12 09:30 | NUR ---
RN NOTES PATIENT RETURNED FROM SURGERY VIA GURNEY, ACCOMPANIED BY 2 OR NURSES. POST-OP ORDERS NOTED. VS TAKEN: BP-120/52, HR-93, R-17, O2SAT IN RA-98%. NO COMPLAINT OF PAIN AT THIS TIME.
--- NOTE | 2021-03-12 10:01 | NUR ---
RN NOTES PATIENT SEEN BY ANGÉLICA RATLIFF NP, MADE AWARE OF PLAN OF CARE.
[2021-03-12 11:30] VITALS: BP 118/67
[2021-03-12] MEDS: INSULIN REGULAR, HUMAN 100 UNIT/ML 3 ML VIAL SQ PRN ×2 (11:31→17:29)
--- NOTE | 2021-03-12 11:45 | NUR ---
RN NOTES CHARGE NURSE SPOKE W/ DR. DENSON AND WAS INFORMED THAT PATIENT WILL HAVE DIALYSIS LATER TODAY. INFORMED RADIOLOGY AND OKAY TO PROCEED W/ CT PROCEDURE.
--- NOTE | 2021-03-12 15:21 | NUR ---
RN NOTES HD NURSE IN THE UNIT AND WILL DIALYZE PATIENT TODAY IN THE AFTERNOON.
--- NOTE | 2021-03-12 15:44 | NUR ---
RN NOTES DIALYSIS NURSE AT BEDSIDE FOR SCHEDULED HD.
[2021-03-12 16:00] VITALS: BP 108/54
--- NOTE | 2021-03-12 17:53 | NUR ---
RN NOTES PER [place], HD NURSE, IJ HD CATH WORKS BUT JUST REVERSED.
--- NOTE | 2021-03-12 19:30 | NUR ---
RN NOTES PATIENT RESTING IN BED, NOT IN ACUTE DISTRESS. S/P HD TODAY. BREATHING EVEN AND UNLABORED. ABLE TO EAT LUNCH AND DINNER, NO NAUSEA/VOMITING NOTED. SAFETY MEASURES MAINTAINED. ENDORSED TO EXTRACTION MACHINE OPERATOR RN FOR PATRICIA.
--- NOTE | 2021-03-12 19:50 | NUR ---
INFUSION RN OPENING NOTES PATIENT RESTING IN BED, NOT IN ACUTE DISTRESS. S/P HD TODAY WITH 500 CC OUTPUT. BREATHING EVEN AND UNLABORED. NO NAUSEA/VOMITING NOTED. SAFETY MEASURES MAINTAINED. NOTED WITH HAYDEN MIDLINE INTACT FLUSHING AND R SUBCLAVIAN HD CATH AND R GROIN HD CATH.ALL NEEDS ATTENDED AT THIS TIME. CALLLIGHT WITHING REACH. TABLE WITHIN REACH WILL CONTINUE TO MONITOR.
[2021-03-12 20:00] VITALS: BP 124/57
[2021-03-12] MEDS: *INSULIN REGULAR(HUMULIN R)HUM 100 UNIT/ML VIAL SQ PRN (21:58)
[2021-03-13] VITALS: BP 103/58
[2021-03-13 04:00] VITALS: BP 107/53
[2021-03-13] MEDS: hydrALAZINE HCL 25 MG TABLET PO SCH ×3 (05:00→21:23)
[2021-03-13] MEDS: BLOOD SUGAR DIAGNOSTIC 1 EACH STRIP VI SCH ×4 (06:50→21:23)
[2021-03-13] MEDS: INSULIN REGULAR, HUMAN 100 UNIT/ML 3 ML VIAL SQ PRN ×3 (06:51→17:19)
--- NOTE | 2021-03-13 07:04 | NUR ---
FLOOR COVERING PRINTER CLOSING NOTES PATIENT RESTING IN BED, NOT IN ACUTE DISTRESS. S/P HD YESTERDAY WITH 500 CC OUTPUT. BREATHING EVEN AND UNLABORED. NO NAUSEA/VOMITING NOTED. SAFETY MEASURES MAINTAINED. NOTED WITH HAYDEN MIDLINE INTACT FLUSHING AND R SUBCLAVIAN HD CATH AND R GROIN HD CATH INTACT. ALL NEEDS ATTENDED AT THIS TIME. CALL LIGHT WITHIN REACH. TABLE WITHIN REACH WILL ENDORSE CARE TO DAY SHIFT NURSE.
[2021-03-13 07:16] LABS: BASOPHILS % (AUTO) 0.9 % (0.0-2.0); EOSINOPHILS % (AUTO) 4.6 % (0.0-6.0); HEMATOCRIT 24 % (33-45); HEMOGLOBIN 8.5 g/dL (11.5-14.8); LYMPHOCYTES # (AUTO) 1.1 K/uL (0.8-4.8); LYMPHOCYTES % (AUTO) 20.7 % (20.0-44.0); MEAN CORPUSCULAR HGB CONC 35 g/dl (31.0-36.0); MEAN CORPUSCULAR VOLUME 92 fL (82-100); MONOCYTES # (AUTO) 0.7 K/uL (0.1-1.30); MONOCYTES % (AUTO) 12.3 % (2.0-12.0); NEUTROPHILS # (AUTO) 3.3 K/uL (1.8-8.9); NEUTROPHILS % (AUTO) 61.5 % (43.0-81.0); PLATELET COUNT (AUTO) 180 K/uL (150-450); RED BLOOD CELL COUNT(AUTO) 2.64 MIL/uL (4.0-5.2); WHITE BLOOD COUNT (AUTO) 5.4 K/uL (4.3-11.0)
--- NOTE | 2021-03-13 07:30 | NUR ---
FIELD TECHNICIAN OPENING NOTES RECEIVED PATIENT RESTING IN BED, NO ACUTE DISTRESS NOTED. BREATHING EVEN AND UNLABORED. NO NAUSEA/VOMITING NOTED. ABLE TO COMMUNICATE IN MARTIN[place]QUAIS LANGUAGE.SAFETY MEASURES MAINTAINED. ON TELE MONITORING SR=94 .NOTED WITH HAYDEN MIDLINE INTACT FLUSHING AND R SUBCLAVIAN HD CATH AND R GROIN HD CATH.ALL NEEDS ATTENDED AT THIS TIME. CALL LIGHT WITHIN REACH. TABLE WITHIN REACH WILL CONTINUE TO MONITOR.
[2021-03-13 08:00] VITALS: BP 124/72
[2021-03-13] MEDS: LETROZOLE 2.5 MG TABLET PO SCH (08:33)
[2021-03-13] MEDS: AMLODIPINE BESYLATE 10 MG TABLET PO SCH (08:34)
[2021-03-13] MEDS: CARVEDILOL 12.5 MG TABLET PO SCH ×2 (08:35→16:27)
[2021-03-13] MEDS: HEPARIN SODIUM, PORCINE 5000 UNITS/1 ML VIAL SQ SCH (08:37)
[2021-03-13 08:54] LABS: ALBUMIN 3.2 g/dL (3.4-5.0); BILIRUBIN,TOTAL 0.3 mg/dL (0.2-1.0); CALCIUM, SERUM 9.7 mg/dL (8.5-10.1); CREATININE 2.2 mg/dL (0.6-1.3); MAGNESIUM 2.5 mg/dL (1.8-2.4); PHOSPHORUS 3.4 mg/dL (2.5-4.9); POTASSIUM 3.8 mmol/L (3.5-5.1); TOTAL PROTEIN, SERUM 6.4 g/dL (6.4-8.2)
[2021-03-13 12:00] VITALS: BP 110/50
[2021-03-13] MEDS: DOCUSATE SODIUM 100 MG CAPSULE PO SCH (13:20)
[2021-03-13 16:00] VITALS: BP 104/53
--- NOTE | 2021-03-13 18:46 | NUR ---
ORGANIZATION DEVELOPMENT CONSULTANT CLOSING NOTES PATIENT RESTING IN BED, NO ACUTE DISTRESS NOTED. BREATHING EVEN AND UNLABORED. NO NAUSEA/VOMITING NOTED. ABLE TO COMMUNICATE IN BANGLADESHI LANGUAGE.SAFETY MEASURES MAINTAINED. ON TELE MONITORING SR=82 .NOTED WITH HAYDEN MIDLINE INTACT FLUSHING AND R SUBCLAVIAN HD CATH AND R GROIN HD CATH.ALL DUE MEDS GIVEN.ALL NEEDS ATTENDED AT THIS TIME. CALL LIGHT WITHIN REACH. TABLE WITHIN REACH WILL ENDORSE FOR PATRICIA.
[2021-03-13 20:00] VITALS: BP 106/59
[2021-03-13] MEDS: *INSULIN REGULAR(HUMULIN R)HUM 100 UNIT/ML VIAL SQ PRN (22:27)
[2021-03-14] VITALS: BP 112/58
[2021-03-14 04:00] VITALS: BP 116/61
[2021-03-14] MEDS: hydrALAZINE HCL 25 MG TABLET PO SCH ×3 (05:00→21:15)
[2021-03-14] MEDS: BLOOD SUGAR DIAGNOSTIC 1 EACH STRIP VI SCH ×4 (06:35→21:15)
[2021-03-14] MEDS: INSULIN REGULAR, HUMAN 100 UNIT/ML 3 ML VIAL SQ PRN ×2 (06:35→11:20)
--- NOTE | 2021-03-14 06:41 | NUR ---
TRANSFORMATION CONSULTANT NOTES AWAKE & RESPONSIVE. NOT IN ANY DISTRESS. NO SOB NOTED. DENIES ANY PAIN OR DISCOMFORT AT THIS TIME. ON TELE SR @ 88 WITH IV-HL PATENT & INTACT. MONITORED ACCORDINGLY. CALL LIGHT WITHIN REACH. BED IN LOWEST POSITION. SR UP X 2 FOR SAFETY. WILL ENDORSE TO NEXT SHIFT.
--- NOTE | 2021-03-14 07:26 | NUR ---
TIRE MAKER OPENING NOTES RECEIVED PATIENT AWAKE ,RESTING IN BED, NO ACUTE DISTRESS NOTED. BREATHING EVEN AND UNLABORED. NO NAUSEA/VOMITING NOTED. ABLE TO COMMUNICATE IN MART[place]QUA[place] LANGUAGE.SAFETY MEASURES MAINTAINED. ON TELE MONITORING SR=85.NOTED WITH HAYDEN MIDLINE INTACT FLUSHING. R SUBCLAVIAN HD CATH AND R GROIN HD CATH INTACT.ALL NEEDS ATTENDED AT THIS TIME. CALL LIGHT AND TABLE WITHIN REACH. WILL CONTINUE TO MONITOR.
[2021-03-14 07:57] LABS: BASOPHILS % (AUTO) 0.5 % (0.0-2.0); EOSINOPHILS % (AUTO) 3.9 % (0.0-6.0); HEMATOCRIT 24 % (33-45); HEMOGLOBIN 8.3 g/dL (11.5-14.8); LYMPHOCYTES # (AUTO) 1.1 K/uL (0.8-4.8); LYMPHOCYTES % (AUTO) 21.5 % (20.0-44.0); MEAN CORPUSCULAR HGB CONC 35 g/dl (31.0-36.0); MEAN CORPUSCULAR VOLUME 93 fL (82-100); MONOCYTES # (AUTO) 0.6 K/uL (0.1-1.30); MONOCYTES % (AUTO) 11.7 % (2.0-12.0); NEUTROPHILS # (AUTO) 3.3 K/uL (1.8-8.9); NEUTROPHILS % (AUTO) 62.4 % (43.0-81.0); PLATELET COUNT (AUTO) 187 K/uL (150-450); RED BLOOD CELL COUNT(AUTO) 2.56 MIL/uL (4.0-5.2); WHITE BLOOD COUNT (AUTO) 5.3 K/uL (4.3-11.0)
[2021-03-14 08:00] VITALS: BP 114/64
[2021-03-14 08:18] LABS: ALBUMIN 3.1 g/dL (3.4-5.0); BILIRUBIN,TOTAL 0.4 mg/dL (0.2-1.0); CALCIUM, SERUM 8.7 mg/dL (8.5-10.1); MAGNESIUM 2.4 mg/dL (1.8-2.4); PHOSPHORUS 3.2 mg/dL (2.5-4.9); POTASSIUM 3.7 mmol/L (3.5-5.1); TOTAL PROTEIN, SERUM 6.3 g/dL (6.4-8.2)
[2021-03-14] MEDS: LETROZOLE 2.5 MG TABLET PO SCH (08:21)
[2021-03-14] MEDS: DOCUSATE SODIUM 100 MG CAPSULE PO SCH (08:21)
[2021-03-14] MEDS: CARVEDILOL 12.5 MG TABLET PO SCH ×2 (08:22→17:51)
[2021-03-14] MEDS: AMLODIPINE BESYLATE 10 MG TABLET PO SCH (08:22)
[2021-03-14 12:00] VITALS: BP 105/52
--- NOTE | 2021-03-14 12:57 | NUR ---
RN NOTES PATIENT REFUSED HYDRALAZINE FOR 1300 . HELD THE MEDICATION FOR YY=539/52, P=79
[2021-03-14 16:00] VITALS: BP 111/58
[2021-03-14] MEDS: *INSULIN REGULAR(HUMULIN R)HUM 100 UNIT/ML VIAL SQ PRN ×2 (17:50→21:25)
--- NOTE | 2021-03-14 18:54 | NUR ---
BI REPORT DEVELOPER CLOSING NOTES PATIENT AWAKE ,RESTING IN BED, NO ACUTE DISTRESS NOTED. BREATHING EVEN AND UNLABORED. NO NAUSEA/VOMITING NOTED. ABLE TO COMMUNICATE IN SLOVENIAN LANGUAGE.SAFETY MEASURES MAINTAINED. ON TELE MONITORING .NOTED WITH HAYDEN MIDLINE INTACT FLUSHING. R SUBCLAVIAN HD CATH AND R GROIN HD CATH INTACT.ALL NEEDS ATTENDED AT THIS TIME.aLL DUE MEDS GIVEN. CALL LIGHT AND TABLE WITHIN REACH. WILL ENDORSE FOR PATRICIA.
--- NOTE | 2021-03-14 19:54 | NUR ---
BULL RIDER OPENING NOTE PATIENT RECEIVED AWAKE IN HER BED. A/OX4. NO S/S OF DISTRESS, BREATHING SYMMETRICAL. TELE MONITOR SR 78. HAYDEN INTACT AND PATENT. SAFETY MEASURES IN PLACE: BED AT LOWEST POSITION, RAILS UP X2, CALL DOE WITHIN REACH. WILL CONTINUE TO MONITOR PATIENT.
[2021-03-14 20:54] VITALS: BP 138/57
--- NOTE | 2021-03-14 23:59 | NUR ---
RECEIVED REPORT AT [id number]. PATIENT STABLE.
[2021-03-15 00:30] VITALS: BP 94/50
[2021-03-15] MEDS: hydrALAZINE HCL 25 MG TABLET PO SCH ×3 (04:25→21:00)
[2021-03-15 04:30] VITALS: BP 106/52
[2021-03-15] MEDS: INSULIN REGULAR, HUMAN 100 UNIT/ML 3 ML VIAL SQ PRN ×3 (06:50→17:29)
[2021-03-15] MEDS: BLOOD SUGAR DIAGNOSTIC 1 EACH STRIP VI SCH ×4 (06:51→22:39)
--- NOTE | 2021-03-15 07:31 | NUR ---
REPORT GIVEN TO DAYSHIFT RN. PATIENT IS STABLE. NO SIGNIFICANT CHANGES DURING SHIFT.
[2021-03-15 07:37] LABS: BASOPHILS % (AUTO) 0.6 % (0.0-2.0); EOSINOPHILS % (AUTO) 3.1 % (0.0-6.0); HEMATOCRIT 22 % (33-45); HEMOGLOBIN 7.6 g/dL (11.5-14.8); MEAN CORPUSCULAR HGB CONC 36 g/dl (31.0-36.0); MEAN CORPUSCULAR VOLUME 91 fL (82-100); MONOCYTES # (AUTO) 0.7 K/uL (0.1-1.30); MONOCYTES % (AUTO) 11.8 % (2.0-12.0); NEUTROPHILS # (AUTO) 3.7 K/uL (1.8-8.9); NEUTROPHILS % (AUTO) 66.5 % (43.0-81.0); PLATELET COUNT (AUTO) 192 K/uL (150-450); RED BLOOD CELL COUNT(AUTO) 2.35 MIL/uL (4.0-5.2); WHITE BLOOD COUNT (AUTO) 5.5 K/uL (4.3-11.0)
--- NOTE | 2021-03-15 07:56 | NUR ---
EHS SPECIALIST OPENING NOTE Patient in bed, awake. A/O x 4, able to make needs known. On room air, breathing evenly and unlabored. No SOB or s/s of distress noted. IV access on HAYDEN midline SL, intact and patent. Denies any pain or discomfort at this time. On tele monitoring showing SR, HR on the 80's. Safety precautions in place: bed in low, locked position; siderails up x 2; call light within reach. Will continue to monitor.
[2021-03-15 08:00] VITALS: BP 93/50
[2021-03-15] MEDS: LETROZOLE 2.5 MG TABLET PO SCH (08:44)
[2021-03-15] MEDS: DOCUSATE SODIUM 100 MG CAPSULE PO SCH (08:44)
[2021-03-15] MEDS: CARVEDILOL 12.5 MG TABLET PO SCH ×2 (08:45→17:00)
[2021-03-15] MEDS: AMLODIPINE BESYLATE 10 MG TABLET PO SCH (08:46)
[2021-03-15 09:59] LABS: BILIRUBIN,TOTAL 0.4 mg/dL (0.2-1.0); CALCIUM, SERUM 8.4 mg/dL (8.5-10.1); MAGNESIUM 2.5 mg/dL (1.8-2.4); PHOSPHORUS 3.4 mg/dL (2.5-4.9); POTASSIUM 3.5 mmol/L (3.5-5.1); TOTAL PROTEIN, SERUM 6.1 g/dL (6.4-8.2)
--- NOTE | 2021-03-15 10:30 | NUR ---
RN NOTE Patient's BP was 93/50, Sarina Duenas NP notified. Orthostatic BP taken: Lying down- 114/55; sitting down- 114/69; standing up- 93/61. Hospitalist ordered IV bolus of NS 250 ml, carried out.
[2021-03-15] MEDS ORDERED: IV NS 0.9% 250 ML IV ONE (11:00)
[2021-03-15 12:00] VITALS: BP 121/54
--- NOTE | 2021-03-15 12:59 | NUR ---
RN NOTE Patient's BP has been low. Patient to have HD today, held BP meds.
[2021-03-15 16:00] VITALS: BP 124/62
--- NOTE | 2021-03-15 19:40 | NUR ---
TELE/RN OPENING NOTE RECEIVED PATIENT RESTING IN BED. AWAKE, ALERT AND ORIENTED X 4. PRIMARILY THAI SPEAKING. DENIES PAIN AT THIS TIME. CONTINUES ON ROOM AIR WITH NO S/SX OF RESPIRATORY DISTRESS NOTED. IV ACCESS TO LEFT UPPER ARM MIDLINE #18G INTACT, PATENT AND SALINE LOCKED. RIGHT UPPER CHEST PERMACATH AND RIGHT FEMORAL HD CATH IN PLACE. CONTINUES ON TELE MONITOR WITH CURRENT READING SR. CALL LIGHT WITHIN REACH. ASPIRATION, FALL AND SAFETY PRECAUTIONS MAINTAINED. WILL CONTINUE TO MONITOR.
[2021-03-15 20:00] VITALS: BP 125/67
--- NOTE | 2021-03-15 20:03 | NUR ---
SHADOWGRAPH OPERATOR CLOSING NOTE Patient in bed, awake. A/O x 4, able to make needs known. On room air, breathing evenly and unlabored. No SOB or s/s of distress noted. IV access on HAYDEN midline SL, intact and patent. Denies any pain or discomfort at this time. On tele monitoring showing SR, HR on the 80's. All needs attended to. Due meds given. Safety precautions in place: bed in low, locked position; siderails up x 2; call light within reach. Will endorse to night club manager nurse for PATRICIA.
--- NOTE | 2021-03-15 21:00 | NUR ---
TELE/RN NOTE PATIENTS BP 125/67 HR 86. PATIENT HAD EPISODE OF HYPOTENSION REQUIRING IV BOLUS EARLIER TODAY AND THEN HAD HD. [facility].
[2021-03-15] MEDS: *INSULIN REGULAR(HUMULIN R)HUM 100 UNIT/ML VIAL SQ PRN (22:59)
[2021-03-16] VITALS: BP 133/67
--- NOTE | 2021-03-16 00:15 | NUR ---
TELE/RN NOTE NEW ORDER FROM DR. DENSON FOR BIOPSY OF KIDNEY IN AM. PATIENT TO BE NPO NOW. WILL OBTAIN CONSENT THIS SHIFT.
[2021-03-16 04:00] VITALS: BP 124/57
[2021-03-16] MEDS: hydrALAZINE HCL 25 MG TABLET PO SCH ×3 (05:00→21:00)
[2021-03-16] MEDS: BLOOD SUGAR DIAGNOSTIC 1 EACH STRIP VI SCH ×4 (06:21→21:44)
--- NOTE | 2021-03-16 06:30 | NUR ---
TELE/RN CLOSING NOTE PATIENT CURRENTLY SLEEPING IN BED. ALERT AND ORIENTED X 4. PRIMARILY BELIZEAN SPEAKING. DENIES PAIN AT THIS TIME. CONTINUES ON ROOM AIR WITH NO S/SX OF RESPIRATORY DISTRESS NOTED. IV ACCESS TO LEFT UPPER ARM MIDLINE #18G INTACT, PATENT AND SALINE LOCKED. RIGHT UPPER CHEST PERMACATH AND RIGHT FEMORAL HD CATH IN PLACE. CONTINUES ON TELE MONITOR WITH CURRENT READING SR. CONTINUES ON NPO STATUS. CONSENT IN CHART FOR BIOPSY. CALL LIGHT WITHIN REACH. ASPIRATION, FALL AND SAFETY PRECAUTIONS MAINTAINED. WILL ENDORSE PLAN OF CARE TO ONCOMING SHIFT.
[2021-03-16 06:51] LABS: BASOPHILS % (AUTO) 0.9 % (0.0-2.0); HEMATOCRIT 22 % (33-45); HEMOGLOBIN 7.7 g/dL (11.5-14.8); LYMPHOCYTES # (AUTO) 1.3 K/uL (0.8-4.8); LYMPHOCYTES % (AUTO) 24.4 % (20.0-44.0); MEAN CORPUSCULAR HGB CONC 35 g/dl (31.0-36.0); MEAN CORPUSCULAR VOLUME 92 fL (82-100); MONOCYTES # (AUTO) 0.7 K/uL (0.1-1.30); NEUTROPHILS % (AUTO) 57.7 % (43.0-81.0); PLATELET COUNT (AUTO) 203 K/uL (150-450); RED BLOOD CELL COUNT(AUTO) 2.35 MIL/uL (4.0-5.2); WHITE BLOOD COUNT (AUTO) 5.2 K/uL (4.3-11.0)
[2021-03-16 07:10] LABS: BILIRUBIN,TOTAL 0.3 mg/dL (0.2-1.0); CALCIUM, SERUM 8.8 mg/dL (8.5-10.1); CREATININE 1.9 mg/dL (0.6-1.3); MAGNESIUM 2.5 mg/dL (1.8-2.4); PHOSPHORUS 3.4 mg/dL (2.5-4.9); POTASSIUM 4.1 mmol/L (3.5-5.1); TOTAL PROTEIN, SERUM 6.2 g/dL (6.4-8.2)
--- NOTE | 2021-03-16 07:35 | NUR ---
RN OPENING NOTE- PT IN BED. AWAKE, ALERT AND ORIENTED X 4. PRIMARILY KINYARWANDA SPEAKING. DENIES PAIN AT THIS TIME. CONTINUES ON ROOM AIR WITH NO S/SX OF RESPIRATORY DISTRESS NOTED. IV ACCESS TO LEFT UPPER ARM MIDLINE #18G . RIGHT UPPER CHEST PERMACATH AND RIGHT FEMORAL HD CATH IN PLACE. CONTINUES ON TELE MONITOR. CALL LIGHT WITHIN REACH. ASPIRATION, FALL AND SAFETY PRECAUTIONS MAINTAINED. WILL CONTINUE TO MONITOR/ASSIST
[2021-03-16 08:00] VITALS: BP 135/66
[2021-03-16] MEDS: AMLODIPINE BESYLATE 10 MG TABLET PO SCH (08:14)
[2021-03-16] MEDS: DOCUSATE SODIUM 100 MG CAPSULE PO SCH (08:14)
[2021-03-16] MEDS: CARVEDILOL 12.5 MG TABLET PO SCH ×2 (08:14→16:28)
[2021-03-16] MEDS: LETROZOLE 2.5 MG TABLET PO SCH (08:16)
[2021-03-16] MEDS: INSULIN REGULAR, HUMAN 100 UNIT/ML 3 ML VIAL SQ PRN ×2 (11:48→17:25)
[2021-03-16 12:00] VITALS: BP 111/57
[2021-03-16 16:00] VITALS: BP 108/67
--- NOTE | 2021-03-16 18:43 | NUR ---
RN CLOSING NOTE-PT IN BED. AWAKE, ALERT AND ORIENTED X 4. PRIMARILY FRISIAN SPEAKING. DENIES PAIN AT THIS TIME. CONTINUES ON ROOM AIR WITH NO S/SX OF RESPIRATORY DISTRESS NOTED. IV ACCESS TO LEFT UPPER ARM MIDLINE #18G . RIGHT UPPER CHEST PERMACATH AND RIGHT FEMORAL HD CATH IN PLACE. CONTINUES ON TELE MONITOR. CALL LIGHT WITHIN REACH. ASPIRATION, FALL AND SAFETY PRECAUTIONS MAINTAINED. WILL CONTINUE TO MONITOR/ASSIST. DR DENSON CANCELLED BIOPSY FOR TOMORROW. MONITOR
--- NOTE | 2021-03-16 20:00 | NUR ---
RN OPENING NOTES Patient is A&Ox4. No signs of distress. Reports feeling well at this time. Reports no needs at this time. HAYDEN midline patent and intact. Will continue to monitor.
[2021-03-16 21:04] VITALS: BP 98/65
[2021-03-16] MEDS: *INSULIN REGULAR(HUMULIN R)HUM 100 UNIT/ML VIAL SQ PRN (21:46)
[2021-03-17 00:40] VITALS: BP 101/53
[2021-03-17] MEDS: hydrALAZINE HCL 25 MG TABLET PO SCH ×3 (04:22→20:52)
[2021-03-17 04:24] VITALS: BP 101/52
[2021-03-17] MEDS: BLOOD SUGAR DIAGNOSTIC 1 EACH STRIP VI SCH ×4 (06:51→21:24)
[2021-03-17] MEDS: INSULIN REGULAR, HUMAN 100 UNIT/ML 3 ML VIAL SQ PRN (06:52)
--- NOTE | 2021-03-17 07:02 | NUR ---
RN CLOSING NOTES Patient is A&Ox4, stable overnight -no overnight events. HAYDEN midline intact and patent. RCW permacath and R femoral HD cath intact. No hypo or hyperglycemic reactions. SR on monitor 70s overnight. Currently awake in bed awaiting breakfast. no signs of distress. Denies needs at this time.
[2021-03-17 07:24] LABS: BASOPHILS % (AUTO) 0.8 % (0.0-2.0); EOSINOPHILS % (AUTO) 2.3 % (0.0-6.0); HEMATOCRIT 22 % (33-45); HEMOGLOBIN 7.9 g/dL (11.5-14.8); LYMPHOCYTES # (AUTO) 1.4 K/uL (0.8-4.8); LYMPHOCYTES % (AUTO) 23.1 % (20.0-44.0); MEAN CORPUSCULAR HGB CONC 36 g/dl (31.0-36.0); MEAN CORPUSCULAR VOLUME 93 fL (82-100); MONOCYTES # (AUTO) 0.8 K/uL (0.1-1.30); MONOCYTES % (AUTO) 13.5 % (2.0-12.0); NEUTROPHILS # (AUTO) 3.6 K/uL (1.8-8.9); NEUTROPHILS % (AUTO) 60.3 % (43.0-81.0); PLATELET COUNT (AUTO) 202 K/uL (150-450); RED BLOOD CELL COUNT(AUTO) 2.36 MIL/uL (4.0-5.2)
[2021-03-17 08:00] VITALS: BP 106/62
[2021-03-17 08:04] LABS: BILIRUBIN,TOTAL 0.4 mg/dL (0.2-1.0); CALCIUM, SERUM 9.2 mg/dL (8.5-10.1); CREATININE 1.8 mg/dL (0.6-1.3); MAGNESIUM 2.6 mg/dL (1.8-2.4); PHOSPHORUS 3.3 mg/dL (2.5-4.9); POTASSIUM 4.2 mmol/L (3.5-5.1); TOTAL PROTEIN, SERUM 6.2 g/dL (6.4-8.2)
--- NOTE | 2021-03-17 08:09 | NUR ---
RN OPENING NOTES PATIENT AWAKE IN BED RESTING, A/O X4. NO S/S OF PAIN NOTED AT THIS TIME. ON ROOM AIR, NO DISTRESS OR SHORTNESS OF BREATH NOTED. IV ACCESS HAYDEN MIDLINE INTACT, PATENT AND FLUSHING WELL. PATIENT HAVE AN EXTERNAL WAFER CUTTER WITH CURRENT READING OF S.R., NO CARDIAC DISTRESS NOTED. FALL AND SAFETY MEASURES IN PLACE, BED ALARM ON, BED IN LOW AND LOCK POSITION, CALL LIGHT AND TABLE WITHIN EASY REACH, SIDE RAILS UP X2. WILL CONTINUE TO MONITOR.
[2021-03-17] MEDS: LETROZOLE 2.5 MG TABLET PO SCH (08:40)
[2021-03-17] MEDS: AMLODIPINE BESYLATE 10 MG TABLET PO SCH (08:41)
[2021-03-17] MEDS: DOCUSATE SODIUM 100 MG CAPSULE PO SCH (08:41)
[2021-03-17] MEDS: CARVEDILOL 12.5 MG TABLET PO SCH ×2 (08:42→16:58)
[2021-03-17] MEDS: *INSULIN REGULAR(HUMULIN R)HUM 100 UNIT/ML VIAL SQ PRN ×3 (13:09→21:25)
[2021-03-17] MEDS: ONDANSETRON HCL/PF 4 MG/2 ML VIAL IVP PRN (15:49)
[2021-03-17 16:00] VITALS: BP 125/67
--- NOTE | 2021-03-17 19:07 | NUR ---
RN CLOSING NOTES PATIENT AWAKE IN BED RESTING, A/O X4. NO S/S OF PAIN NOTED AT THIS TIME. ON ROOM AIR, NO DISTRESS OR SHORTNESS OF BREATH NOTED. IV ACCESS HAYDEN MIDLINE INTACT, PATENT AND FLUSHING WELL. PATIENT HAVE AN EXTERNAL EMBALMER ASSISTANT WITH CURRENT READING OF S.R. AND HR OF 80, NO CARDIAC DISTRESS NOTED. FALL AND SAFETY MEASURES IN PLACE, BED ALARM ON, BED IN LOW AND LOCK POSITION, CALL LIGHT AND TABLE WITHIN EASY REACH, SIDE RAILS UP X2. WILL ENDORSE TO VULCANIZER RUBBER PLATE.
--- NOTE | 2021-03-17 19:30 | NUR ---
RN NOTES RECEIVED PATIENT AWAKE PN HER BED, A/OX4, SR ON TELE MONITOR HR-83, FAMILY AT BEDSIDE SR ON TELE MONITOR HR-83, DENIES PAIN, NO SOB, CALL LIGHT WITHIN REACH, [id number], WILL CONTINUE TO MONITOR
--- NOTE | 2021-03-17 19:40 | NUR ---
RN NOTES NOTICED RIGHT ARM SWOLLEN, DENIES PAIN, WARM TO TOUCH
[2021-03-17 20:00] VITALS: BP 110/55
[2021-03-18] VITALS: BP 112/52
[2021-03-18 04:00] VITALS: BP 102/54
[2021-03-18] MEDS: hydrALAZINE HCL 25 MG TABLET PO SCH ×2 (05:00→13:00)
[2021-03-18] MEDS: BLOOD SUGAR DIAGNOSTIC 1 EACH STRIP VI SCH ×3 (06:33→17:10)
[2021-03-18] MEDS: INSULIN REGULAR, HUMAN 100 UNIT/ML 3 ML VIAL SQ PRN ×3 (06:35→17:12)
[2021-03-18 07:01] LABS: BASOPHILS % (AUTO) 0.8 % (0.0-2.0); EOSINOPHILS % (AUTO) 2.6 % (0.0-6.0); HEMATOCRIT 21 % (33-45); HEMOGLOBIN 7.5 g/dL (11.5-14.8); LYMPHOCYTES # (AUTO) 1.3 K/uL (0.8-4.8); LYMPHOCYTES % (AUTO) 21.2 % (20.0-44.0); MEAN CORPUSCULAR HGB CONC 35 g/dl (31.0-36.0); MEAN CORPUSCULAR VOLUME 93 fL (82-100); MONOCYTES # (AUTO) 0.8 K/uL (0.1-1.30); MONOCYTES % (AUTO) 12.9 % (2.0-12.0); NEUTROPHILS # (AUTO) 3.8 K/uL (1.8-8.9); NEUTROPHILS % (AUTO) 62.5 % (43.0-81.0); PLATELET COUNT (AUTO) 202 K/uL (150-450); RED BLOOD CELL COUNT(AUTO) 2.32 MIL/uL (4.0-5.2); WHITE BLOOD COUNT (AUTO) 6.1 K/uL (4.3-11.0)
[2021-03-18 07:34] LABS: ALBUMIN 3.1 g/dL (3.4-5.0); BILIRUBIN,TOTAL 0.3 mg/dL (0.2-1.0); CALCIUM, SERUM 8.8 mg/dL (8.5-10.1); CREATININE 1.8 mg/dL (0.6-1.3); MAGNESIUM 2.3 mg/dL (1.8-2.4); PHOSPHORUS 3.5 mg/dL (2.5-4.9); POTASSIUM 4.7 mmol/L (3.5-5.1)
--- NOTE | 2021-03-18 07:52 | NUR ---
MACHINIST/MACHINE BUILDER OPENING NOTES RECEIVED PATIENT AWAKE IN BED RESTING, A/O X4. [place] SPEAKER. NO S/S OF PAIN NOTED AT THIS TIME. ON ROOM AIR, NO DISTRESS OR SHORTNESS OF BREATH NOTED. IV ACCESS HAYDEN MIDLINE INTACT, PATENT AND FLUSHING WELL. PATIENT HAVE AN EXTERNAL HAND OR MACHINE PASTER WITH CURRENT READING OF S.R., NO CARDIAC DISTRESS NOTED. FALL AND SAFETY MEASURES IN PLACE, BED ALARM ON, BED IN LOW AND LOCK POSITION, CALL LIGHT AND TABLE WITHIN EASY REACH, SIDE RAILS UP X2. WILL CONTINUE TO MONITOR.
[2021-03-18 08:00] VITALS: BP 108/66
[2021-03-18] MEDS: DOCUSATE SODIUM 100 MG CAPSULE PO SCH (09:36)
[2021-03-18] MEDS: LETROZOLE 2.5 MG TABLET PO SCH (09:36)
[2021-03-18] MEDS: CARVEDILOL 12.5 MG TABLET PO SCH ×2 (09:37→17:09)
[2021-03-18] MEDS: AMLODIPINE BESYLATE 10 MG TABLET PO SCH (09:37)
[2021-03-18] MEDS ORDERED: LETR2.5T PO (10:54)
[2021-03-18] MEDS ORDERED: CARV12.52 PO (10:54)
[2021-03-18] MEDS ORDERED: HYDR-4076 PO (10:54)
[2021-03-18] MEDS ORDERED: DOCU100C36 PO (10:54)
[2021-03-18] MEDS ORDERED: AMLO-213 PO (10:54)
[2021-03-18] MEDS ORDERED: EMPA10TA PO (11:06)
[2021-03-18] MEDS ORDERED: EPOETIN ALFA (10,000 UNIT) 10,000 UNIT/ML VIAL IV ONE (15:00)
[2021-03-18 16:00] VITALS: BP 102/60
[2021-03-18 17:09] VITALS: BP 102/60
--- NOTE | 2021-03-18 19:00 | NUR ---
MS RN CLOSING NOTES PATIENT AWAKE IN BED RESTING, A/O X4. JAPANESE SPEAKER. NO S/S OF PAIN NOTED AT THIS TIME. ON ROOM AIR, NO DISTRESS OR SHORTNESS OF BREATH NOTED. IV ACCESS HAYDEN MIDLINE INTACT, PATENT AND FLUSHING WELL, NO CARDIAC DISTRESS NOTED.ALL DUE MEDS GIVEN ORDERED. DOCTOR YESICA REMOVED THE SUBCLAVIAN CATHETER , NO BLEEDING NOTED. JULY THE FLUID JET CUTTER OPERATOR REMOVED THE FEMORAL HD CATH. NO BLEEDING NOTED. FALL AND SAFETY MEASURES IN PLACE, BED ALARM ON, BED IN LOW AND LOCK POSITION, CALL LIGHT AND TABLE WITHIN EASY REACH, SIDE RAILS UP X2. WILL ENDORSE FOR PATRICIA.
--- NOTE | 2021-03-18 19:50 | NUR ---
DIRECTOR INSURANCE NOTES DISCHARGE PATIENT IN STABLE CONDITION, VITAL SIGNS WITHIN NORMAL RANGES. NO PAIN NOTED. NO DISTRESS NOTED. ALL BELONGINGS ACCOUNTED AND SIGNED FOR. MID LINE REMOVED. COVERED WITH DRESSING . NO BLEEDING NOTED. ID BAND REMOVED . DISCHARGE INSTRUCTION GIVEN TO THE PATIENT. VERBALIZED UNDERSTANDING. NOHEMI THE PIPPA WHEELED THE PATIENT TO THE LOBBY AT 1950 PATIENT LEFT HOSPITAL IN STABLE CONDITION. REMIND IN CASE OF EMERGENCY TO GO TO ER OR TO THE NEAREST URGENT CARE . VERBALIZED UNDERSTANDING. CHARGE NURSE AND MD AWARE OF THE DISCHARGE.
== END 2021-03-18 19:50 | disposition home or self-care (01) | DRG 469 ==
LOC: ER 14:57 → TRANSITION 17:20 → TELE 19:29 → MED 03-18 15:30
PROVIDERS: ADMIT Internal Medicine; ATTEND Nurse Practitioner Acute Care
PROC: 05H633Z Insertion of Infusion Device into Left Subclavian Vein, Percutaneous Approach (ICD-10-PCS; principal; 2021-03-07)
PROC: B547ZZA Ultrasonography of Left Subclavian Vein, Guidance (ICD-10-PCS; 2021-03-07)
PROC: 0W993ZZ Drainage of Right Pleural Cavity, Percutaneous Approach (ICD-10-PCS; 2021-03-09)
PROC: 0JH63XZ Insertion of Tunneled Vascular Access Device into Chest Subcutaneous Tissue and Fascia, Percutaneous Approach (ICD-10-PCS; 2021-03-10)
PROC: 02H633Z Insertion of Infusion Device into Right Atrium, Percutaneous Approach (ICD-10-PCS; 2021-03-10)
PROC: B518YZA Fluoroscopy of Superior Vena Cava using Other Contrast, Guidance (ICD-10-PCS; 2021-03-10)
PROC: 5A1D70Z Performance of Urinary Filtration, Intermittent, Less than 6 Hours Per Day (ICD-10-PCS; 2021-03-10)
PROC: 0J2TXYZ Change Other Device in Trunk Subcutaneous Tissue and Fascia, External Approach (ICD-10-PCS; 2021-03-12)
PROC: 02HV33Z Insertion of Infusion Device into Superior Vena Cava, Percutaneous Approach (ICD-10-PCS; 2021-03-12)
PROC: B518YZA Fluoroscopy of Superior Vena Cava using Other Contrast, Guidance (ICD-10-PCS; 2021-03-12)
PROC: 0JPTXXZ Removal of Tunneled Vascular Access Device from Trunk Subcutaneous Tissue and Fascia, External Approach (ICD-10-PCS; 2021-03-18)
DX: N17.0 Acute kidney failure with tubular necrosis (principal); C78.2 Secondary malignant neoplasm of pleura; C79.51 Secondary malignant neoplasm of bone; E87.2 Acidosis; J90 Pleural effusion, not elsewhere classified; E87.1 Hypo-osmolality and hyponatremia; E83.39 Other disorders of phosphorus metabolism; D64.9 Anemia, unspecified; I50.32 Chronic diastolic (congestive) heart failure; I11.0 Hypertensive heart disease with heart failure; N13.30 Unspecified hydronephrosis; I16.1 Hypertensive emergency; C50.911 Malignant neoplasm of unspecified site of right female breast; J98.11 Atelectasis; E87.5 Hyperkalemia; Z80.3 Family history of malignant neoplasm of breast; Z92.3 Personal history of irradiation; R53.1 Weakness; Z92.21 Personal history of antineoplastic chemotherapy; E11.9 Type 2 diabetes mellitus without complications; Z79.84 Long term (current) use of oral hypoglycemic drugs; Z90.11 Acquired absence of right breast and nipple; Z20.822 Contact with and (suspected) exposure to COVID-19
CPT/HCPCS: 36410; 36415; 36600; 71045-TC; 71250-TC; 71260-TC; 78306-TC; 80048-TC; 80053-TC; 80076-TC; 82010-TC; 82272-TC; 82378; 82570-TC; 82728-TC; 82784; 82803-TC; 82962-TC; 83540-TC; 83605-TC; 83690-TC; 83735-TC; 83880; 83970; 84100-TC; 84155; 84165; 84300-TC; 84443-TC; 84484-TC; 85025-TC; 85730-TC; 86300; 86334; 86706; 87070-TC; 87081-TC; 87340; 88108-TC; 88305-TC; 89051-TC; 90935-TC; 93307-TC; 94799-TC; A6253; A9503; C1750; C1757; C1769; C1894; C9803; G0378; J0690; J0885; J1644; J1815; J2250; J2405; J2704; J2765; J3010; J3490; J7030; J7050; J7060; Q9966; Q9967

== ENCOUNTER 2021-08-28 16:53 | Emergency (ER) | payer MEDICAID ==
[~2021-08-28] VITALS: Ht 160 cm; Wt 61.7 kg
[~2021-08-28 16:53] MED LIST changes: +AMLO-213 PO; +CARV12.52 PO; +DOCU100C36 PO; +EMPA10TA PO; +HYDR-4076 PO; +LETR2.5T PO; -[UNRECOGNIZED DRUG - OTHER] PO; -[UNRECOGNIZED DRUG - REMARK]
--- NOTE | 2021-08-28 17:35 | NUR ---
bib daughter, fever rue swelling x 3 days. BROUGHT IN VIA WHEELCHAIR, PLACED ON BED, AAOX4, BREATHING EVEN AND UNLABORED.
[2021-08-28] MEDS ORDERED: IV NS 0.9% 500 ML IV ONE (19:00)
--- NOTE | 2021-08-28 20:00 | NUR ---
SWAB FOR COVID19 AND NOVEL ROBISON VIRUS SENT TO LAB
[2021-08-28 20:04] LABS: HEMATOCRIT 23 % (33-45); HEMOGLOBIN 8.1 g/dL (11.5-14.8); LYMPHOCYTES # (AUTO) 0.3 K/uL (0.8-4.8); MEAN CORPUSCULAR HGB CONC 36 g/dl (31.0-36.0); MEAN CORPUSCULAR VOLUME 92 fL (82-100); MONOCYTES # (AUTO) 0.1 K/uL (0.1-1.30); MONOCYTES % (AUTO) 2.8 % (2.0-12.0); NEUTROPHILS # (AUTO) 4.7 K/uL (1.8-8.9); NEUTROPHILS % (AUTO) 92.2 % (43.0-81.0); PLATELET COUNT (AUTO) 295 K/uL (150-450); RED BLOOD CELL COUNT(AUTO) 2.49 MIL/uL (4.0-5.2); WHITE BLOOD COUNT (AUTO) 5.1 K/uL (4.3-11.0)
--- NOTE | 2021-08-28 20:05 | NUR ---
MAXILLOFACIAL PROSTHODONTIST AT BED SIDE FOR BLOOD WORKS
[2021-08-28 20:13] LABS: CALCIUM, SERUM 8.5 mg/dL (8.5-10.1); CARBON DIOXIDE 21 mmol/L (21-32); CHLORIDE 91 mmol/L (98-107); CREATININE 3.4 mg/dL (0.6-1.3); GLUCOSE 161 mg/dL (74-106); POTASSIUM 3.3 mmol/L (3.5-5.1); SODIUM SERUM 126 mmol/L (136-145); UREA NITROGEN, BLOOD 41 mg/dL (7-18)
[2021-08-28] MEDS ORDERED: ACETAMINOPHEN ES 500 MG TABLET ONE ×2 (20:17→20:20)
[2021-08-28 20:27] LABS: ALANINE AMINOTRANSFERASE 13 U/L (12-78); ALBUMIN 2.7 g/dL (3.4-5.0); ALKALINE PHOSPHATASE 69 U/L (46-116); ASPARTATE AMINOTRANSFERASE 18 U/L (15-37); BILIRUBIN,DIRECT 0.3 mg/dL (0.0-0.2); BILIRUBIN,TOTAL 0.7 mg/dL (0.2-1.0); TOTAL PROTEIN, SERUM 7.2 g/dL (6.4-8.2)
[2021-08-28] MEDS ORDERED: ACETAMINOPHEN ES 500 MG TABLET PO ONE (20:30)
[2021-08-28 20:53] LABS: BAND % (MANUAL) 2 % (0.0-5.0); LYMPHOCYTES % (MANUAL) 5 % (16-48); MONOCYTES % (MANUAL) 4 % (0-11.0); NEUTROPHILS % (MANUAL) 89 (42-76)
--- NOTE | 2021-08-28 21:07 | NUR ---
TROP [id number]
[2021-08-28] MEDS ORDERED: ASPIRIN 325 MG TABLET PO ONE (22:30)
[2021-08-28] MEDS ORDERED: CEFTRIAXONE 1GM BAG (ER ONLY) 1 GM/50 ML PIGGYBACK IV ONE (22:30)
[2021-08-28 22:37] VITALS: BP 107/52
[2021-08-28] MEDS ORDERED: CEFTRIAXONE 1GM BAG (ER ONLY) 50 ML IV ONE (22:38)
[2021-08-28] MEDS ORDERED: ASPIRIN 325 MG TABLET ONE (22:39)
--- NOTE | 2021-08-28 22:40 | NUR ---
GERARD GABRIEL UPDATED, WILL PAGE MD AWAITING PHONE CALL
[2021-08-28] MEDS ORDERED: DOXYCYCLINE 100 MG in IV D5W 100 ML IV ONE (23:00)
--- NOTE | 2021-08-28 23:17 | NUR ---
SWAB FOR RAPID INFLUENZA SENT TO LAB
--- NOTE | 2021-08-28 23:26 | NUR ---
JORGE LUIS U/S TECH AT BED SIDE
[2021-08-28] MEDS ORDERED: DOXYCYCLINE 100 MG VIAL ONE (23:29)
[2021-08-28] MEDS ORDERED: CEFP200T14 PO (23:44)
[2021-08-28] MEDS ORDERED: DOXY100T2 PO (23:44)
--- NOTE | 2021-08-28 23:52 | NUR ---
Patient does not wish to proceed with medical care recommended by Dr. RODRIGUEZ . Patient given information related to possible complications, up to and including , which could occur as a result of leaving the hospital at this time. Patient verbalizes understanding of risks involved due to leaving against medical advice. Patient has signed AMA form.
== END 2021-08-29 00:07 | disposition left against medical advice (07) ==
LOC: ER 16:56
DX: J18.9 Pneumonia, unspecified organism (principal); J91.8 Pleural effusion in other conditions classified elsewhere; Z20.822 Contact with and (suspected) exposure to COVID-19; N17.9 Acute kidney failure, unspecified; R77.8 Other specified abnormalities of plasma proteins; Z53.29 Procedure and treatment not carried out because of patient's decision for other reasons; C50.911 Malignant neoplasm of unspecified site of right female breast; C79.9 Secondary malignant neoplasm of unspecified site; D84.821 Immunodeficiency due to drugs; T45.1X5A Adverse effect of antineoplastic and immunosuppressive drugs, initial encounter; Z79.899 Other long term (current) drug therapy; Y92.019 Unspecified place in single-family (private) house as the place of occurrence of the external cause; I12.9 Hypertensive chronic kidney disease with stage 1 through stage 4 chronic kidney disease, or unspecified chronic kidney disease; E11.22 Type 2 diabetes mellitus with diabetic chronic kidney disease; N18.9 Chronic kidney disease, unspecified; Z79.84 Long term (current) use of oral hypoglycemic drugs
CPT/HCPCS: 99291; 96365; 93971; 87426; 93005; 87804; 71045; 84145; 85025; 80048; 87040 ×2; 83605; 80076; 36415; 84484; 85730; 85007; U0003; J3490; J7060; J7040; J0696; C9803

== ENCOUNTER 2021-11-07 14:18 | Emergency (ER) | payer MEDICAID ==
[~2021-11-07] VITALS: Ht 162.6 cm; Wt 58.5 kg
[~2021-11-07 14:18] MED LIST changes: +CEFP200T14 PO; +DOXY100T2 PO
--- NOTE | 2021-11-07 14:30 | NUR ---
bib daughter w/ c/o nausea/vomiting last chemo x2 weeks ago. to er bed 9.
--- NOTE | 2021-11-07 14:37 | NUR ---
DR MAYA AT BEDSIDE FOR EVAL
[2021-11-07] MEDS ORDERED: ONDANSETRON HCL/PF 4 MG/2 ML VIAL ONE (14:52)
[2021-11-07] MEDS ORDERED: ONDANSETRON HCL/PF 4 MG/2 ML VIAL IVP ONE (15:00)
--- NOTE | 2021-11-07 15:06 | NUR ---
PHLEB AT BEDSIDE FOR BLOOD DRAW.
--- NOTE | 2021-11-07 15:13 | NUR ---
NO COMPLAINT OF NAUSEA AT THIS TIME; INFORMED DR MAYA IF ZOFRAN CAN BE HELD AT THIS TIME, SAMY Hunt/ .
[2021-11-07 15:48] LABS: BASOPHILS # (AUTO) 0.1 K/uL (0.0-0.2); BASOPHILS % (AUTO) 1.2 % (0.0-2.0); EOSINOPHILS % (AUTO) 0.4 % (0.0-6.0); HEMATOCRIT 29 % (33-45); HEMOGLOBIN 9.5 g/dL (11.5-14.8); LYMPHOCYTES # (AUTO) 0.7 K/uL (0.8-4.8); LYMPHOCYTES % (AUTO) 8.2 % (20.0-44.0); MEAN CORPUSCULAR HGB CONC 33 g/dl (31.0-36.0); MEAN CORPUSCULAR VOLUME 91 fL (82-100); MONOCYTES # (AUTO) 0.7 K/uL (0.1-1.30); MONOCYTES % (AUTO) 8.8 % (2.0-12.0); NEUTROPHILS # (AUTO) 6.8 K/uL (1.8-8.9); NEUTROPHILS % (AUTO) 81.4 % (43.0-81.0); PLATELET COUNT (AUTO) 408 K/uL (150-450); RED BLOOD CELL COUNT(AUTO) 3.17 MIL/uL (4.0-5.2); WHITE BLOOD COUNT (AUTO) 8.3 K/uL (4.3-11.0)
[2021-11-07 16:02] LABS: CARBON DIOXIDE 24 mmol/L (21-32); CHLORIDE 99 mmol/L (98-107); GLUCOSE 253 mg/dL (74-106); POTASSIUM 3.8 mmol/L (3.5-5.1); SODIUM SERUM 132 mmol/L (136-145); UREA NITROGEN, BLOOD 24 mg/dL (7-18)
[2021-11-07 16:08] LABS: ALANINE AMINOTRANSFERASE 14 U/L (12-78); ALBUMIN 2.2 g/dL (3.4-5.0); ALKALINE PHOSPHATASE 151 U/L (46-116); ASPARTATE AMINOTRANSFERASE 23 U/L (15-37); BILIRUBIN,DIRECT 0.5 mg/dL (0.0-0.2); BILIRUBIN,TOTAL 0.7 mg/dL (0.2-1.0); TOTAL PROTEIN, SERUM 7.1 g/dL (6.4-8.2)
--- NOTE | 2021-11-07 16:51 | NUR ---
Patient discharged to home in stable condition. Written and verbal after care instructions given. Patient verbalizes understanding of instruction.
[2021-11-07 16:52] VITALS: BP 130/78
== END 2021-11-07 16:53 | disposition home or self-care (01) ==
LOC: ER 14:22
DX: T18.128A Food in esophagus causing other injury, initial encounter (principal); I10 Essential (primary) hypertension; E11.9 Type 2 diabetes mellitus without complications; Z79.899 Other long term (current) drug therapy; X58.XXXA Exposure to other specified factors, initial encounter; Y93.89 Activity, other specified; Y92.89 Other specified places as the place of occurrence of the external cause; Y99.8 Other external cause status
CPT/HCPCS: 36415; 71045-TC; 80048-TC; 80076-TC; 85025-TC; J2405